=== PATIENT | male | born 1930 | race Caucasian/White ===

== ENCOUNTER 2019-09-17 02:12 | Emergency (ER) | payer MEDICARE, BC ==
[2019-09-17] MEDS ORDERED: Cocaine 4% TOPICAL* 4 ML/BOTTLE LEFT NARE ONE (02:30)
--- OUTSIDE RECORDS SUMMARY | 2019-09-17 03:02 | XMS REPORT | Summary of Care ---
:1930 Author Organization [facility] Address [address] [address] Care Team Providers Name Role Phone AveJamey Perri Primary Care Provider Joselin Elias RN Unavailable Reason for Visit Reason Comments Follow Up Pt. in for follow up on Diastolic Heart Failure, and Paroxysmal VT. Pt. reports SOB. Medication Management Pt. made a few adjustments throughout the past few months due to increased shortness of breath. Encounter Details Date Type Department Care Team Description 08/17/2019 Office Visit Maggie Sanchez, Chronic diastolic Cardiology MD Rigoberto heart failure (HCC) [address] (Primary Dx) [place] [address] [place] [address] [phone] Allergies Active Allergy Reactions Severity Noted Date Comments Amiodarone Hcl Unknown Reaction 12/13/2003 Amlodipine Besylate Other 08/14/2003 itching Diclofenac-Misoprostol GI Reaction 03/05/2010 Aspirin Buffered Nausea and Vomiting 08/14/2003 Oxycodone Hcl 12/13/2003 CONFUSED,TOO SEDATE Oxycodone-Acetaminophen Unknown Reaction 05/11/2011 documented as of this encounter (statuses as of 08/17/2019) Medications Medication Sig Dispensed Refills Start Date End Date Status Aspirin 81 MG Oral Tab Take 81 mg by 0 Active mouth DAILY. Lactobacillus Take 100 mg by 0 Active (ACIDOPHILUS) 100 MG mouth. Oral CapIndications: Frequent loose stools acetaminophen (TYLENOL) Take 500 mg by 0 Active 500 MG Oral Tab mouth EVERY SIX HOURS NEEDED for Pain. Rabeprazole EC 20 MG Take 20 mg by 90 Tab 3 10/08/2016 Active Oral Tab EC mouth DAILY. mupirocin (BACTROBAN) 2 To affected area 1 Tube 0 06/07/2017 Active % Apply externally twice daily for OintmentIndications: next 10 days Cellulitis, unspecified cellulitis site Tamsulosin HCl (FLOMAX) Take 2 Caps by 180 Cap 3 09/01/2018 Active 0.4 MG Oral Cap mouth DAILY. ipratropium-albuterol Take 1 Puff by 1 Inhaler 5 12/01/2018 Active (COMBIVENT RESPIMAT) inhalation EVERY 20-100 MCG/ACT FOUR HOURS Inhalation Aero Soln NEEDED (sob). allopurinol (ZYLOPRIM) TAKE ONE TABLET 90 Tab 3 12/13/2018 Active 300 MG Oral Tab BY MOUTH ONCE DAILY warfarin (COUMADIN) 5 Take 0.5-1 Tabs 90 Tab 3 03/17/2019 Active MG Oral TabIndications: by mouth DAILY. Atrial fibrillation, As directed which unspecified type (HCC) is 5mg Thur. 2.5mg rest of week tramadol (ULTRAM) 50 MG Take 0.5 Tabs by 15 Tab 0 04/04/2019 Active Oral Tab mouth EVERY SIX HOURS NEEDED (Pain). Max Daily Amount: 100 mg. cyclobenzaprine Take 10 mg by 0 Active (FLEXERIL) 5 MG Oral mouth THREE TIMES Tab DAILY NEEDED. Liniments (SALONPAS EX) by Apply 0 Active externally route. torsemide (DEMADEX) 20 Take 2 Tabs by 180 Tab 3 04/10/2019 Active MG Oral TabIndications: mouth TWICE Chronic diastolic heart DAILY. failure (HCC) Eplerenone 50 MG Oral Take 1 Tab by 180 Tab 3 04/10/2019 Active TabIndications: Chronic mouth TWICE diastolic heart failure DAILY. (HCC) umeclidinium-VILANTEROL Take 1 INHL by 1 Each 5 04/13/2019 Active (ANORO ELLIPTA) 62.5-25 inhalation DAILY. MCG/INH Inhalation AEROSOL POWDER, BREATH ACTIVATED zolpidem (AMBIEN) 5 MG TAKE ONE TABLET 30 Tab 3 07/10/2019 Active Oral TabIndications: BY MOUTH AT Insomnia, unspecified BEDTIME NEEDED type MAXIMUM DAILY DOSE = 1 documented as of this encounter (statuses as of 08/17/2019) Active Problems Problem Noted Date Permanent atrial fibrillation 12/05/2018 Primary osteoarthritis of right knee 05/05/2016 Streptococcal arthritis of right wrist 11/08/2015 Overview: [facility] admission infectious disease Dr Abner winter vancomycin Chronic obstructive pulmonary disease 01/25/2014 BMI 31.0-31.9,adult 06/21/2013 Poor sleep hygiene 02/09/2013 Colon polyps 05/04/2012 Overview: Colonoscopy 2008 Impotence of organic origin 01/19/2012 Primary hyperparathyroidism 12/04/2010 Overview: Bone density scan 2012 normal bone mineral density Dyslipidemia 11/11/2010 ASCVD (arteriosclerotic cardiovascular disease) 10/24/2009 Overview: 02/09/05: Right and Let Heart Catheterization SELECTIVE CORONARY ANGIOGRAPHY: LEFT MAIN: The left main is normal. LEFT ANTERIOR DESCENDING ARTERY: The left anterior descending artery is a large artery that reaches the apex. In its proximal/mid segment, it contains tandem lesions of about 30% severity. There is no critical stenosis. LEFT CIRCUMFLEX: The left circumflex is moderate-sized and nondominant without critcal stenosis. RIGHT CORONARY ARTERY: The right coronary artery is a large and very dominant artery. In its proximal segment, it contains a focal 50% stenosis which appears worse, from a heart catheterization in 1995. 02/08/09: Pharmacologic Nuclear Stress Test Impression: Normal study with the described artifacts. Ejection fraction 48%. BI-VENTRICULAR PACEMAKER/ICD IN SITU 12/04/2008 Overview: 06/07/08: Explanation of defibrillator generator, implantation of defibrillator generator, and electrophysiological evaluation of lead and generator. DEFIBRILLATOR GENERATOR EXPLANTED: [employer] model V337 serial number [id number]. DEFIBRILLATOR GENERATOR IMPLANTED: Model 3207 serial number [id number]. Right atrial lead model 4244 serial number [id number]. Right ventricle lead model 0154 serial number [id number]. Left ventricular lead model 1056T serial number [id number] 05/22/10: S/p NIPS / Dr. Reyes 04/27/12: Arrhythmia Center Report This visit was performed remotely. Ventricular pacing with capture is seen at the time of this transmission. On 03/15/12, there was one episode on nonsustained VT that subsided before any therapy was given. No other episodes were recorded. ICD function appears normal. This device should reach the SCARLET in 1.2 years. Atrial fibrillation 06/06/2008 Overview: 04/29/05: S/p AV octavio ablation / Dr. Reyes 07/08/05: S/p Electrical cardioversion CHADS score: 4 05/2014 stroke risk 2/100 treated and 6/100 untreated Current use of intermediate designer anticoagulation 10/31/2007 Overview: Managed by: [facility] Referring Provider: Joi Indication: afib Target Range: 2.0-3.0 Duration: Yarding Engineer Additional factors influencing anticoagulation: CHADS2 score of 3 for HTN, DM and AGE [id number] VASc score of 4 Concurrent use of medication affecting anticoagulation includes: Aspirin use doubles risk of hemorrhage (additive anticoagulant/antiplatelet effects) Updated Referral: 11/2018 Updated ACS Orders: 12/26/18 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 intolerant of CPAP 2006 Last sleep study 2006: IMPRESSION: Nocturnal Polysomnogram Shows: Respiratory: Gradual CPAP titration with good RDI reduction to 3.9/h at BIPAP 13 /8 cm of water pressure with BPM of 12. Patient tolerated the procedure well. Oximetry: Baseline was 93% and maximal desaturation was 75%. Leg movements: 44 episodes with the index of 7/h. EEG data: Low sleep efficiency with prominent stage 2 sleep. EKG data: SR CONCLUSION: Good response to BIPAP given the central component seen with CPAP. C onsider BIPAP at 13/8 cm of water pressure with heated humidifier, weight reduct ion program and good sleep hygiene. Diastolic heart failure 04/13/2005 Overview: 11/10/10: Echocardiogram FINAL IMPRESSION: Mildly calcific aortic valve, mild regurgitation, no stenosis Normal biventricular systolic function, LVEF 55-60% Normal atria No significant mitral or tricuspid valve disease No effusion No change from before Paroxysmal ventricular tachycardia 07/14/2004 BPH (benign prostatic hyperplasia) 12/13/2003 Overview: Dr Bustillos [facility] urology Essential hypertension, benign 03/12/2003 documented as of this encounter (statuses as of 08/17/2019) Resolved Problems Problem Noted Date Resolved Date Persistent atrial fibrillation 10/04/2017 11/16/2017 Elective replacement indicated for implantable 10/06/2016 11/16/2017 cardioverter-defibrillator (ICD) Chronic atrial fibrillation 07/13/2016 11/16/2017 Type II diabetes mellitus, well controlled 12/06/2015 04/28/2019 ACS (acute coronary syndrome) 11/23/2013 04/23/2014 Shortness of breath 08/17/2013 06/25/2014 Shoulder pain 03/08/2013 08/17/2013 Hyperparathyroidism 01/05/2013 11/16/2017 Overview: Mild calcium level 10.6 01/07 ICD (implantable cardiac defibrillator) malfunction 12/06/2012 11/16/2017 Right-sidedAbdominal pain 05/10/2012 05/10/2012 Overview: 11/11/11: Abdominal Ultrasound Impression: Heterogeneous liver without focal mass. No splenomegaly. Prominent common duct may just reflect prior cholecystectomy. Urgency: Routine. This is a routine medical imaging report. Recommendation: No specific imaging recommendation. Abdominal pain 05/10/2012 08/10/2012 Overview: 11/11/11: Abdominal Ultrasound Impression: Heterogeneous liver without focal mass. No splenomegaly. Prominent common duct may just reflect prior cholecystectomy. Urgency: Routine. This is a routine medical imaging report. Recommendation: No specific imaging recommendation. Epistaxis 11/18/2011 08/10/2012 Chronic systolic heart failure 05/12/2011 08/10/2012 Overview: 11/10/10: Echocardiogram Left Ventricle Left ventricular cavity size is normal. There is moderate to severe concentric left ventricular hypertrophy. No evidence of LVOT obstruction. Global systolic function is normal with an EF of 65 %. There is basal inferior wall hypokinesis. Systolic CHF, chronic 11/11/2010 12/04/2010 Cardiomyopathy 05/22/2010 09/16/2010 Encounter for therapeutic drug monitoring 05/20/2010 12/04/2010 Type II or unspecified type diabetes mellitus without mention 05/13/201004/2017 of complication, not stated as uncontrolled Overview: Hemoglobin A1C 6.1% 10/2010 Encounter for therapeutic drug monitoring 04/07/2010 05/13/2010 Asthma 11/12/2009 03/24/2010 Chronic systolic heart failure 04/23/2009 11/05/2010 Overview: 04/30/09: ECHOCARDIOGRAM FINAL IMPRESSION: The aortic valve is tricuspid , mildly calcified with normal mobility. There is mild aortic regurgitation. LVH,mild global hypokinesia, LVEF 45% Biatrial dilation Mildly dilated RV, mild global systolic dysfunction Mild MR,TR No significant effusion Other diseases of lung, not elsewhere classified 12/04/2008 02/27/2010 Mobitz (type) II atrioventricular block 07/20/2008 08/10/2012 COPD (chronic obstructive pulmonary disease) 06/08/2008 06/25/2014 BI-VENTRICULAR PACEMAKER/ICD IN SITU 05/17/2008 10/24/2009 Mechanical complication due to automatic implantable cardiac 05/10/200804/23 defibrillator Chronic systolic heart failure 04/25/2008 04/23/2009 Narcolepsy 03/19/2008 03/24/2010 Other dyspnea and respiratory abnormality 01/18/2008 04/23/2009 Vitreous degeneration 12/21/2007 06/25/2014 Pacemaker 06/29/2007 04/23/2009 CARDIOMEGALY 06/27/2007 04/23/2009 Unspecified disease of pericardium 04/12/2006 04/23/2009 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 Electrical cardioversion.2. Intracardiac mapping.3. Radiofrequency ablation of the flutter circuit. S/P AV-OCTAVIO ABLATION ON 04/29/05 PROCEDURE: The patient was prepped and draped in the usual style and manner. A 7-Kiswahili venous sheath was introduced and a quadripolar catheter was advanced into the region of the atrioventricular node and the atrioventricular node was ablated. Additionally, the patient was cardioverted back to a normal sinus rhythm. 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 03/19/2008 Overview: Replaced inactive diagnosis PROSTATIC DISORDER NOS(aka PROSTATE) 03/12/2003 04/08/2008 documented as of this encounter (statuses as of 08/17/2019) Immunizations Name Administration Dates Next Due Depo Medrol (40mg) 03/08/2013 Depo Medrol (80mg) 05/05/2016 Influenza (IM) Preservative Free 06/15/2013, 07/13/2012, 06/30/2011 Influenza Vaccine 65 Yrs + 07/04/2019 Influenza Vaccine High Dose 06/16/2018, 06/09/2017, 07/29/2016, 07/22/2015, 07/02/2014 Influenza Vaccine Whole 07/18/2009 Influenza Virus Vaccine - Whole 07/11/2008, 07/27/2002 Influenza Virus Vaccine Pres Free 07/01/2010 6-35 Months Pneumococcal Conjugate Vaccine 06/15/2009 Pneumococcal Conjugate(13 Valent) 11/07/2014 TDAP Vaccine 05/18/2017 ZOSTER (ZOSTAVAX) VACCINE 06/15/2013 documented as of this encounter Social History Tobacco Use Types Packs/Day Years Used Date Never Smoker Smokeless Tobacco: Never Used Alcohol Use Drinks/Week oz/Week Comments No 0 Standard drinks or equivalent 0.0 Sex Assigned at Date Recorded Not on file Job Start Date Occupation Industry Not on file Not on file Not on file Travel History Travel Start Travel End No recent travel history available. documented as of this encounter Last Filed Vital Signs Vital Sign Reading Time Taken Comments Blood Pressure 108/58 08/17/2019 9:22 AM EST Pulse 72 08/17/2019 9:22 AM EST regular Temperature - - Respiratory Rate - - Oxygen Saturation - - Inhaled Oxygen Concentration - - Weight 83.5 kg (184 lb) 08/17/2019 9:22 AM EST Height 162.6 cm (5' 4") 08/17/2019 9:22 AM EST Body Mass Index 31.58 08/17/2019 9:22 AM EST documented in this encounter Patient Instructions Patient InstructionsRigoberto Sanchez MD - 08/17/2019 9:20 AM EST No medication changes for now. Get your bloodwork checked today. Continue with a low sodium diet, regular exercise, and weighing yourself daily. Follow up with me in 3-4 months or sooner if needed. documented in this encounter Progress Notes Rigoberto Sanchez MD - 08/17/2019 9:20 AM EST [facility] Note Patient: Kory Meneses Date of : 1930 Date of Service: 08/17/2019 REFERRING PRACTITIONER: Jamey Dorado PRIMARY CARE PROVIDER: Jamey Dorado Chief Complaint: Chief Complaint Patient presents with Follow Up Pt. in for follow up on Diastolic Heart Failure, and Paroxysmal VT. Pt. reports SOB. Medication Management Pt. made a few adjustments throughout the past few months due to increased shortness of breath. History of Present Illness: [facility] He is a 89-y.o. male with HTN, paroxysmal VT s/p [employer] BiV ICD, ZAIN not on CPAP, severe diastolic CHF possibly secondary to infiltrative cardiomyopathy versus hypertensive heart disease, obesity, pericardial effusion, aflutter s/p flutter ablation 2003, and permanent Afib s/p AVN ablation on warfarin. Mr. Meneses returns to cardiology clinic today for routine f/u of his CHF. Since his last visit withme, he reports that he's been taking 40mg of torsemide and 50mg of eplerenone once daily. He has taken some extra doses of both diuretics as needed on occasion. From a symptom standpoint, he feels that his breathing is fairly stable at this point. No CP/pressure. Denies any palpitations, lightheadedness, or syncope. No orthopnea but does have some mild and stable lower extremity edema. Weight has been stable. Patient Active Problem List Diagnosis Essential hypertension, benign Paroxysmal ventricular tachycardia Diastolic heart failure (HCC) Obstructive sleep apnea Gout, unspecified Goldsmith's esophagus Current use of chcf anticoagulation BPH (benign prostatic hyperplasia) Atrial fibrillation (HCC) BI-VENTRICULAR PACEMAKER/ICD IN SITU ASCVD (arteriosclerotic cardiovascular disease) Dyslipidemia Primary hyperparathyroidism (HCC) Impotence of organic origin Colon polyps Poor sleep hygiene BMI 31.0-31.9,adult Chronic obstructive pulmonary disease (HCC) Streptococcal arthritis of right wrist (HCC) Primary osteoarthritis of right knee Permanent atrial fibrillation Past Surgical History: Procedure Laterality Date APPENDECTOMY CARDIAC CATH several CARPAL TUNNEL RELEASE mauricio CHOLECYSTECTOMY COLONOSCOPY 08/11/06 due 07/2009 CONSULT TO CARDIO/THORACIC SURGERY INCISIONAL HERNIA REPAIR INSERT PERMNT PACEMAKER,INITIAL/REPLACEMENT,TYPE DEV NS TOTAL HIP REPLACEMENT 2004 left TOTAL HIP REPLACEMENT 2002 right Allergies Allergen Reactions Amiodarone Hcl Unknown Reaction Amlodipine Besylate Other itching Arthrotec [Diclofenac-Misoprostol] GI Reaction Asa Buff, Mag [Aspirin Buffered] Nausea and Vomiting Oxycontin [Oxycodone Hcl] CONFUSED,TOO SEDATE Percocet [Oxycodone-Acetaminophen] Unknown Reaction Current Outpatient Medications Medication acetaminophen (TYLENOL) 500 MG Oral Tab allopurinol (ZYLOPRIM) 300 MG Oral Tab Aspirin 81 MG Oral Tab cyclobenzaprine (FLEXERIL) 5 MG Oral Tab Eplerenone 50 MG Oral Tab ipratropium-albuterol (COMBIVENT RESPIMAT) 20-100 MCG/ACT Inhalation Aero Soln Lactobacillus (ACIDOPHILUS) 100 MG Oral Cap Liniments (SALONPAS EX) mupirocin (BACTROBAN) 2 % Apply externally Ointment Rabeprazole EC 20 MG Oral Tab EC Tamsulosin HCl (FLOMAX) 0.4 MG Oral Cap torsemide (DEMADEX) 20 MG Oral Tab tramadol (ULTRAM) 50 MG Oral Tab umeclidinium-VILANTEROL (ANORO ELLIPTA) 62.5-25 MCG/INH Inhalation AEROSOL POWDER, BREATH ACTIVATED warfarin (COUMADIN) 5 MG Oral Tab zolpidem (AMBIEN) 5 MG Oral Tab Family History Problem Relation Age of Onset Cancer Mother kidney or bladder Heart Father heart failure Cancer Father colon Stroke Sister Social History Socioeconomic History Marital status: Spouse name: Not on file Number of children: Not on file Years of education: Not on file Highest education level: Not on file Occupational History Not on file Social Needs Financial resource strain: Not on file Food insecurity: Worry: Not on file Inability: Not on file Transportation needs: Medical: Not on file Non-medical: Not on file Tobacco Use Smoking status: Never Smoker Smokeless tobacco: Never Used Substance and Sexual Activity Alcohol use: No Alcohol/week: 0.0 standard drinks Drug use: No Sexual activity: Not Currently Lifestyle Physical activity: Days per week: Not on file Minutes per session: Not on file Stress: Not on file Relationships Social connections: Talks on phone: Not on file Gets together: Not on file Attends gnosticist service: Not on file Active member of club or organization: Not on file Attends meetings of clubs or organizations: Not on file Relationship status: Not on file Intimate partner violence: Fear of current or ex partner: Not on file Emotionally abused: Not on file Physically abused: Not on file Forced sexual activity: Not on file Other Topics Concern Back Care Not Asked Bike Helmet Not Asked Blood Transfusions Not Asked Caffeine Concern No Exercise No Hobby Hazards Not Asked International Travel Not Asked Service Not Asked Occupational Exposure Not Asked Seat Belt Not Asked Self-Exams Not Asked Sleep Concern Not Asked Special Diet Not Asked Stress Concern Not Asked Weight Concern No Social History Narrative 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 Review of Systems - Negative except as noted in HPI. Physical Exam: Vitals: 08/17/19 0922 BP: 108/58 BP Location: Right arm Patient Position: Sitting Pulse: 72 Weight: 184 lb (83.5 kg) Height: 5' 4" (1.626 m) Body mass index is 31.58 kg/m. General: Overweight, alert 89-y.o. male in NAD HEENT: anicteric, MMM, no E/E OP, conj pink Neck: JVP approx 7-8 cm above RA, no carotid bruits or LAD CV: RR, normal s1/s2, 2/6 FARHAT at USB unchanged from before. Pulm: CTA bilaterally without wheezes, rhonchi, or rales. No increased work of breathing at rest. Abd: soft, obese, NT, slightly distended, +BS. No appreciable pulsatile masses or bruits. Ext: Trace bilateral lower extremity edema similar to prior visit; no cyanosis, no cords, redness, or warmth, 2+ distal pulses Neuro: no gross focal deficits Skin: no visible lesions Labs: Lab Results Component Value Date NA 139 05/04/2019 K 3.9 05/04/2019 CL 101 05/04/2019 CO2 29 05/04/2019 GLUCOSE 97 05/04/2019 BUN 23 (H) 05/04/2019 CREATININE 1.0 05/04/2019 CALCIUM 10.0 05/04/2019 TP 7.0 04/10/2019 ALBUMIN 3.8 04/10/2019 AST 47 04/10/2019 ALT 38 04/10/2019 ALK 82 04/10/2019 TBILI 0.5 04/10/2019 Lab Results Component Value Date NT PRO BNP 555 (H) 05/04/2019 Lab Results Component Value Date CHOL 154 01/03/2018 TRIG 146 01/03/2018 HDL 39 (L) 01/03/2018 LDL 86 01/03/2018 LDLHDLRATIO 2.2 01/03/2018 CHOLHDLRATIO 3.9 01/03/2018 SPEP 03/20/15: Normal pattern UPEP 03/25/15: No monoclonal pattern detected. Abdominal Fat Pad Biopsy 10/04/2015: Soft tissue, anterior abdominal wall fat pad, biopsy: -Benign adipose tissue; no amyloid deposits are identified on routine or Congo red staining Cardiac Studies: ICD Interrogation 06/19/19: This visit was performed remotely. Ventricular pacing with capture was seen at the time of this transmission. There was one non-sustained episode recorded at a rate of 174 bpm that lasted for 3 seconds, it appears to be rapid ventricular response to the atrial fibrillation. Heart rates range between 70-80 bpm the majority of the time. [employer] Impedance monitoring shows a decrease in thoracic impedancemeasurements for 8 days in February, 15 days in March, 7 days in April and 7 days in May. This would indicate that possible fluid accumulationwas occurring at that time. Implantable Cardioverter Defibrillator function appears normal. TTE 03/27/19: FINAL IMPRESSION: Normal LV cavity size with moderately increased LV wall thickness. Normal LV systolic function with no regional wall motion abnormalities and estimated LVEF 55-60%. Left atrium is severely dilated. Aortic stenosis is in mild range by continuity equation, however 2D appearance may suggest a worse degree of stenosis. If there is a suspicion of worse degree of aortic stenosis based on clinical assessment, further testing with TONEY may be considered. Mild to moderate aortic regurgitation. Estimated pulmonary artery systolic pressure is 37mmHg (mildly elevated). Small pericardial effusion. In comparison with report of TTE dated 04/21/2018, aortic stenosis is now present. Aortic regurgitation appears slightly worse. TTE at [employer] 02/07/16: Concentric LVH with abnormal diastolic function and left atrial enlargement. Normal LVEF without significant wall motion abnormalities, but abnormal LV systolic strain (see text). Heavy aortic valve sclerosis with reduced valve area, but no quite significant stenosis. Mitral valve sclerosis without signigicant stenosis. Estimated mildly elevated pulmonary artery pressure. TTE 12/05/14: FINAL IMPRESSION: Moderate concentric LVH with severe left atrial enlargement and evidence for severely impaired diastolic filling and elevated LA pressures (see text). Normal LV systolic function with no regional wall motion abnormalities; estimated LVEF 55%. Moderate RA enlargement with upper normal RV size and normal RV systolic function. Probably mild aortic stenosis with mild to moderate regurgitation, as described. Estimated moderately elevated pulmonary arterial pressure. Small circumferential pericardial effusion without evidence of tamponade. Compared to prior study 11/24/13, pericardial effusion is slightly smaller and estimated pulmonary pressures are slightly higher. Other findings appear Similar. Recommendation Given constellation of LVH, normal LV function, pericardial effusion, and severe LA enlargement, a restrictive cardiomyopathy such as amyloidosis should be considered. If clinically indicated, could further evaluate with cardiac MRI. Regadenoson SPECT 11/24/13: Impression: No evidence for reversible ischemia with this normal size left ventricle. Assessment & Plan: Kory Meneses is a 89-y.o. male with HTN, paroxysmal VT s/p [employer] BiV ICD, ZAIN not on CPAP, severe diastolic CHF possibly secondary to infiltrative cardiomyopathy versus hypertensive heart disease,obesity, pericardial effusion, aflutter s/p flutter ablation 2003, and permanent Afib s/p AVN ablation on warfarin. 1. 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 He was seen by the advanced HF clinic at [facility] twice in the past, and they agree that conservative medical management of his diastolic CHF makes the most sense. Symptoms are fairly stable right now on half his prior diuretic doses. Prior stable diuretic doses were eplerenone 50mg BID and torsemide 40mg BID. I am continuing those at half his prior dose (once daily) at this point since he's doing well. I'm checking labs again today, and I may increase his eplerenone to 100mg daily but keep him on the 40mg of torsemide daily. I again instructed him to take a "double" dose of both diuretics if his weight increases by 2-3 pounds over 2 or more days. I again counseled patient on the importance of a low sodium diet and monitoring his weights daily. 2. Permanent Atrial Fibrillation: The heart-rate is currently well controlled on the current medicalregimen. This patient's [id number] score is 4. I recommend the following treatment strategy and medical regimen for this patient: Stroke prevention: Based on the patient's [id number]-Idip risk profile, I recommend continuing oral anticoagulation with warfarin. 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 Rhythm control: N/A. Chronic AF. 3. VT/ICD: No recent episodes of VT seen on ICD interrogation. Thank you for allowing me to participate in the care of Kory Meneses. We will have him f/u in our office in ~3-4 months or sooner if needed. If you have any questions or concerns please feel free to call our office at . Rigoberto Sanchez MD, 08/17/2019, 09:30 This note was created using my previous note as a template; changes were made where appropriate, andall information in the current note is up to date to the best of my knowledge. documented in this encounter Plan of Treatment Date Type Specialty Care Team Description 08/31/2019 [facility] Anticoagulation 10/19/2019 [facility] Ar[facility] 11/30/2019 Office Visit Cardiology Rigoberto Sanchez MD [address] [place] [address] 02/01/2020 Office Visit Pulmonary Phillip Berg MD [address] [place] [address] [phone] 02/08/2020 Office Visit Arrhythmia Center 03/21/2020 Office Visit Urology Gómez Padilla MD [address] [place] [address] Name Type Priority Associated Diagnoses Order Schedule BASIC METABOLIC PANEL Lab Routine Chronic diastolic heart Expected: 2018 failure (HCC) (Approximate), Expires: 02/13/2020 NT PROBNP Lab Routine Chronic diastolic heart Expected: 08/17/2019 failure (HCC) (Approximate), Expires: 08/17/2020 Health Maintenance Due Date Last Done Comments HIV SCREENING 1945 FALL RISK ASSESSMENT 1997 ZOSTER IMMUNIZATION SERIES 08/10/2013 06/15/2013 (2 of 3) PNEUMOCOCCAL 65+YRS (2 of 2 11/07/2015 11/07/2014, 06/15/2009 - PPSV23) MEDICARE ANNUAL WELLNESS 08/04/2018 08/04/2017, 05/04/2012 VISIT DEPRESSION SCREENING 04/10/2020 04/10/2019 INFLUENZA VACCINE Completed 07/04/2019, 06/16/2018, 06/09/2017, Additional history exists HPV IMMUNIZATION SERIES Aged Out No longer eligible based on patient's age to complete this topic MENINGOCOCCAL VACCINE IMM Aged Out No longer eligible based on patient's age to complete this topic documented as of this encounter Goals Goal Patient Goal Associated Recent Patient-Stated? Author Type Problems Progress Blood Pressure Blood Pressure 108/58 No [place], < 140/90 (08/17/2019 Jamey Rayo, 10:28 AM EST) Note: Hypertension Care Plan Based on the patient's clinical history and according to JNC 8 guidelines target blood pressure goal is less than 140/90. Based on the patient's last blood pressure of BP: 110/60 mmHg the patient is at at goal. As your provider, it is important that I advise you regarding: your current medications and help you with any challenges you may face taking your medications as directed (ex. instructions, cost, side effects, and interactions). lifestyle changes: exercise, weight reduction, diet, dietary sodium reduction and medication compliance your clinical goals and how you can achieve success: weight reduction, exercise plan and diet improvements medication management: N/A diet only patient education/self-management tools provided: Current self-management tools adequate To successfully manage my Hypertension I will: monitor my blood pressure daily, understanding that my goal is less than 140/ 90 per my healthcare provider's recommendation. I will schedule an appointment with my provider if consistent abnormal readings greater than 160/100. take medications every day as prescribed by my healthcare provider and if unable to take them I will discuss with my provider. monitor for symptoms of chest pain, chest tightness/pressure, irregular heartbeat, persistent dizziness, radiating arm pain, and neck or jaw pain. If any of these symptoms are noticed I will seek medical attention immediately by calling 911 exercise/walk 30 minutes 7 day(s) per week. If I experience chest pain, chest tightness, or shortness of breath, I will seek medical attention immediately. follow a diet rich in fruits, vegetables, and low-fat dairy products with reduced content of saturated & total fat. I will reduce my sodium intake daily. An example is the DASH diet. To obtain more information please refer to the DASH Eating Plan listed in Educational Resources. record my blood pressure results. Javier is safe and secure way for you to do this in your medical record online. try to obtain an ideal body weight. My recent weight was Weight: 200 lb ( 90.719 kg). My weight loss goal for my next office visit is 190 lb . limit alcohol consumption. For men two drinks per day and women one drink per day. if currently smoking, will discuss how to quit smoking with my healthcare provider and work towards quitting. Educational Resources: National Heart, Lung, & Blood [place] http://nhlbi.nih.gov/hbp/index.html The DASH Diet Eating Plan http://www.nhlbi.nih.gov/health/health-topics/ topics/dash/ Academy of Nutrition & DIetetics http://eatright.org National Smoking Cessation Site http://smokefree.gov Blood Pressure < Blood Pressure 108/58 (08/17/2019 10:28 Jamey Connors, 140/90 AM EST) Note: This is an individualized treatment (blood pressure) goal for Kory Meneses: Displayed above (on the left) is your goal for blood pressure control. Your most recent blood pressure is also shown above, on the right. You should try to achieve blood pressures that are lower than your goal listed above (on the left). Weight increase vs. 18 mo CHF 0 (08/17/2019 10:28 AM EST) Jamey Connors MD min (lbs) < 5 Note: This is an individualized treatment (congestive heart failure, CHF) goal for Kory Meneses: Displayed above (on the right) is how many pounds you are in excess of your lowest weight over the past 18 months. Note that lower numbers are better. Excessive weight gain often indicates fluid reten tion and worsening heart failure. You should contact your doctor immediately if the above number is too high (above your goal, the number on the left). Diabetes < 7.0 Diabetes 5.8 (01/03/2018 10:00 AM EDT) Jamey Connors MD Note: Diabetes Care Plan According to current 2014 ADA guidelines the patient A1C goal is less than 7. The patient's last A1C was Lab Results Lab Results Value Date/Time GLYCO 6.6 04/30/2014 0856 GLYCO 6.8 11/28/2013 1545 The patient is:at goal . As your provider, it is important that I advise you regarding: your current medications and help you with any challenges you may face taking your medications as directed (ex. instructions, cost, side effects, and interactions). lifestyle changes:no change your clinical goals and how you can achieve success:maintain current diet medication management: N/A diet only patient education/self-management tools provided: Current self-management tools adequate To successfully manage my Diabetes I will: have lab work every six months if my previous A1c was 7 or less. If my results were greater than 7, I will have lab work every three months. My goal is to control my diabetes by keeping A1c below 7.0 take medications every day as prescribed by my healthcare provider and if unable to take them I will discuss with my provider. exercise/walk 15 minutes 6 day(s) per week. If I experience chest pain, chest tightness, or shortness of breath, I will seek medical attention immediately. check feet daily. If sores or irritation are noticed, will seek medical attention. follow a low carbohydrate and low fat diet. My goal is an LDL (bad cholesterol) number less than 100 when I have my routine lab work. check blood sugar as instructed and will call my healthcare provider if the results are consistently below 70 or above 300. I will monitor for symptoms of low blood sugar (feeling faint, dizzy, lig htheaded, jittery, sweaty, or hungry), if symptoms are noticed, I will eat or drink something (glucose tabs, orange juice, candy) to help raise sugar. record my blood sugar results. Javier is safe and secure way for you to do this in your medical record online. try to obtain an ideal body weight. My recent weight was Weight: 199 lb ( 90.266 kg). My weight loss goal for my next office visit is 190 pounds . to prevent kidney problems common to people with diabetes I will complete a yearly Microalbumin to check for protein in urine. I will talk with my healthcare provider about medications to prevent diabetic renal disease. to prevent diabetic retinopathy I will see an eye doctor yearly. A yearly dilated eye exam helps prevent blindness. if currently smoking, will discuss how to quit smoking with my healthcare provider and work towards quitting. Education Resources: [place] Diabetic Association Site http://diabetes.org Academy of Nutrition & Dietetics Site http://eatright.org National Smoking Cessation Site http://smokefree.gov Glycohemoglobin A1c < 7.0 Diabetes 5.8 (01/03/2018 10:00 AM Jamey Connors EDT) MD Note: This is an individualized treatment (diabetes control, HgbA1C) goal for Kory Meneses: Displayed above is your progress towards your HgbA1C goal. Your goal is shown above (on the left); your most recent HgbA1C is shown on the right. Note that lower numbers are better. Keep immunizations current Lifestyle Jamey Connors MD Note: This is an individualized lifestyle goal for Kory Meneses: Please be sure to keep up-to-date on recommended immunizations. For example, this would include a yearly influenza vaccine. Immunization status can be seen by looking at the Health Maintenance sections of your e[facility], Plan of Care, and any After Visit Summaries. Consume a ai-gossw-toim diet Lifestyle Jamey Connors MD Note: This is an individualized lifestyle goal for Kory Meneses: Please do not add additional salt to your food. Additional salt may lead to fluid retention and worsen your congestive heart failure. Take all prescribed medications as Self-management Jamey Connors MD directed Note: This is an individualized self-management goal for Kory Meneses: Please take all prescribed medications as directed. 1. Do not skip doses. If you cannot afford your medications, talk with your doctor. 2. Use a pill reminder system such as a pill box if needed. Your pharmacist can help you with this. 3. Contact your Pharmacy 5 days before your medication runs out. If you cannot take your medications for any reasons, talk with your doctor. 4. Please bring all of your medication bottles and inhalers (or a list of all your medications/inhalers) with you to every visit. Potential barriers to meeting all of your care plan goals will continue to be addressed on an ongoing basis. Check your weight daily Self-management Jamey Connors MD Note: This is an individualized self-management goal for Kory Meneses: Please check your weight daily. Refer to the accompanying CHF treatment goal and call your doctor immediately for further instructions on how to respond to unexpected weight gain. 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 [employer], 12/25/2013 [id number] / Implanted: Qty: 1 on 12/06/2012 at [facility] [employer] [id number] / Unify Assura [id number] - [id number] Left: [facility], 09/26/2018 [id number] / Implanted: Qty: 1 on 10/06/2016 by Garret Reyes MD at [facility] [id number] / documented as of this encounter Results Not on filedocumented in this encounter Visit Diagnoses Diagnosis Chronic diastolic heart failure (HCC) - Primary Chronic diastolic heart failure documented in this encounter (Home) [facility] [phone] [place], [place] (Work) [address] documented as of this encounter Advance Directives Code Status Date Activated Date Inactivated Comments Full Code 03/27/2019 7:30 PM Does the patient have decision making capacity? Yes Order was discussed with: Patient I discussed all options and patient/surrogate requested and agreed to: Full Code Full Code 11/23/2013 6:58 PM 11/24/2013 9:12 PM Full Code 08/10/2012 10:41 PM 08/12/2012 3:05 PM
--- OUTSIDE RECORDS SUMMARY | 2019-09-17 03:02 | XMS REPORT | Continuity of Care Document ---
:1930 External Reference #:[id number] Author Name Maddie Pike PA-C Address [address] [place] [address] Care Team Providers Name Role Phone Jamey Dorado MD - Internal Care Team Information Commercial Pilot [phone] Medicine Problems Description No Information Available Social History Type Date Description Comments Sex Unknown Tobacco Use Start: Unknown Never Smoked Cigarettes Tobacco Use Start: Unknown Never Smoked Cigars Tobacco Use Start: Unknown Never Smoked A Pipe Smokeless Tobacco Never Used Smokeless Tobacco ETOH Use Denies alcohol use Tobacco Use Start: Unknown Patient has never smoked Smoking Status Reviewed: 09/12/19 Patient has never smoked Allergies, Adverse Reactions, Alerts Active Allergies Reaction Severity Comments Date Hydrocortisone 05/25/2014 Percocet 09/12/2019 Oxycodone 09/12/2019 Medications Active Medications SIG Qnty Indications Ordering Date Provider Allopurinol 2 tab po daily [place] MD, 300mg Tablets Jamey Aspirin Low Dose 1 by mouth every [place] , 81mg Tablets day Jamey Tamsulosin HCL [address] [facility], 0.4mg Capsules day Jamey Coumadin as directed [address] [facility], Tablets Jamey Anoro Ellipta [address] [place], 62.5-25mcg/Inh Jamey Aerosol Combiventinhaler [address] [place], every 6 hours as Jamey needed Ambien 1 by mouth [address] [place], 5mg Tablets min prior to Jamey sleep Tylenol as needed for [address] [facility], 325mg Tablets pain Jamey Torsemide Take Two Tablets Unknown 20mg Tablets By Mouth Twice A Day Eplerenone Take One Tablet Unknown 50mg Tablets By Mouth Two Times A Day Vitamin B6 as directed Unknown 250mg Tablets Aspirin 1 by mouth every Unknown 81mg Chewtabs day Fiber Diet as directed Unknown Tablets Immunizations Description No Information Available Vital Signs Date Vital Result Comment 09/12/2019 3:17pm BP Systolic 131 mmHg BP Diastolic 82 mmHg Heart Rate 91 /min Respiratory Rate 18 /min Weight 190.00 lb Weight 86.184 kg Height 66 inches 5'6" Height in cm's 167.6 cm BMI (Body Mass Index) 30.7 kg/m2 06/08/2014 10:48am BP Systolic 113 mmHg BP Diastolic 56 mmHg Heart Rate 74 /min Respiratory Rate 16 /min Weight 185.00 lb Weight 83.916 kg Height 70 inches 5'10" Height in cm's 177.8 cm BMI (Body Mass Index) 26.5 kg/m2 Results Description No Information Available Procedures Date Code Description Status 09/12/2019 96905 Contol Nasal Hemorrhage, Anterior, Simple Completed Medical Devices Description No Information Available Encounters Type Date Location Provider Dx Diagnosis Office Visit 09/12/2019 3:15p [place] 09/27/07 Maddie Pike PA-C R04.0 Epistaxis Assessments Date Code Description Provider 09/12/2019 R04.0 Epistaxis Maddie Pike PA-C Plan of Treatment 09/12/2019 - MARISELA SchumacherCR04.0 EpistaxisComments:09/12/2019 - EPISTAXIS INSTRUCTIONS2 Functional Status Description No Information Available Mental Status Description No Information Available Referrals Description No Information Available
--- OUTSIDE RECORDS SUMMARY | 2019-09-17 03:02 | XMS REPORT | Continuity of Care Document ---
:1930 Author Organization [facility] Care Team Providers Name Role Phone MARY KAY ANNA Admitting Physician MARY KAY ANNA Attending Physician BLADIMIR PERES Primary Care Physician Allergies and Intolerances Code Code Allergy Type Reaction Severity Start End Date Status System Substance Date 21410429 RXNorm Percocet Drug Unknown Active allergy (disorder) 7804 RXNorm Oxycodone Drug Unknown Active allergy (disorder) 5489 RXNorm Hydrocodone Drug Unknown Active allergy (disorder) Medications RxNorm Medication Dose Route Instructions Start Date End Date Status 4590026 Lidocaine 0.05 1 patch topical topically daily Active MG/MG Medicated (leave on most Patch painful area for 12 hrs) Medications At Time Of Discharge RxNorm Medication Dose Route Instructions Start Date End Date Status 1210991 Lidocaine 0.05 1 patch topical topically daily Active MG/MG Medicated (leave on most Patch painful area for 12 hrs) Problems No Data in the system Procedures No data in the system Results Laboratory Results Order: PT/INR Specimen Source: Body Site: Legend: (G,H) = High, (GG,HH,CH,#H) = Above High Threshold, (#,L) = Low, (##,CL, #L,LL) = Below Low Threshold, (C,CC,CA,#A,A) = Abnormal LOINC Test Result Flag Range Units Date 59010-29 1PT Time PPP 23.9 H 9.4-12.4 sec 08/31/2019 10:54 6301-6 1INR PPP 2.1 08/31/2019 10:54 Interpretive [place]: 1 INR INTERPERTATION 2.0-3.0 THERAPEUTIC MONITORING 2.5-3.5 HEART VALVE REPLACEMENT Performing Lab Footnotes:[facility] - [id number] - [address] [place] [address] TRACE MCGHEE Social History Code Code System Social History Observation Description Dates Observed 350454527 SNOMED CT Current Smoking Status Never smoker UNK AdministrativeGender Sex Assigned At Unknown Vital Signs No data in the system Goals Section No data in the system Health Concerns No data in the systemEncounter Diagnosis Date Code Code System Diagnosis Status I48.21 ICD10 PERMANENT ATRIAL FIBRILLATION Active Advance Directives *RHIO - CONSENT IS YES Directive Type Effective Date Dance Critic Notes Supporting Document Name Address Phone No Directive Type 02/25/2016 Not Specified Not Specified Not Specified None No specified 10:36:58 AM Encounters Encounter Diagnosis Location Date PERMANENT ATRIAL FIBRILLATION [facility] 08/31/2019 Family History Family history not obtained Functional Status No data in the system Immunizations No data in the system Medical Equipment No data in the system Mental Status No data in the system Assessment and Plan Assessments No data in the systemPlan Of Treatment No data in the systemPending Tests No data in the system Hospital Discharge Instructions No data in the system Reason for Visit No data in the system
--- OUTSIDE RECORDS SUMMARY | 2019-09-17 03:02 | XMS REPORT | Summary of Care ---
:1930 Author Organization [facility] Address [address] [place] [address] Care Team Providers Name Role Phone Jamey Dorado Perri Primary Care Provider Joselin Elias RN Unavailable Reason for Visit Reason Comments Shortness of Breath COPD Encounter Details Date Type Department Care Team Description 08/17/2019 Office Visit [facility] Phillip Berg, Chronic obstructive pulmonary disease, unspecified COPD type (HCC) (Primary Dx); [address] [facility] SOB (shortness of breath); [place] [address] [address] Chronic atrial fibrillation [phone] [place] [address] Allergies Active Allergy Reactions Severity Noted Date [...] Streptococcal arthritis of right wrist 11/08/2015 Overview: [facility] admission infectious disease Dr Abner winter vancomycin Chronic obstructive pulmonary disease 01/25/2014 BMI 31.0-31.9,adult 06/21/2013 Poor sleep hygiene 02/09/2013 Colon polyps 05/04/2012 Overview: Colonoscopy 2009 Impotence of organic origin 01/19/2012 Primary hyperparathyroidism [...] EXPLANTED: [employer] model V337 serial number [id number]. DEFIBRILLATOR GENERATOR IMPLANTED: Model 3207 serial number [id number]. Right atrial lead model 4244 serial number [id number]. Right ventricle lead model 0154 serial number [id number]. Left ventricular lead model 1056T serial number [id number] 05/22/10: S/p NIPS / Dr. 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 Overview: Esophago-gastroduodenoscopy 03/06 with biopsy Esophago-gastroduodenoscopy with biopsy Dr Brody 06/06: barrettt's with dysplasia-recommend repeat biopsy [address] Vik Dinero [place], [place] Gout, unspecified 07/26/2007 Obstructive sleep apnea 12/07/2005 Overview: Dental appliance Dr Conteh dental dept [facility] intolerant of CPAP 2006 Last sleep study [...] (benign prostatic hyperplasia) 12/13/2003 Overview: Dr Bustillos [facility] urology Essential hypertension, benign 03/12/2003 documented as [...] in the usual style and manner. A 7-Urdu venous sheath was introduced and a quadripolar [...] Time Taken Comments Blood Pressure 108/58 08/17/2019 10:28 AM Per cardiology visit EST Pulse 104 08/17/2019 10:28 AM EST Temperature - - Respiratory Rate 17 08/17/2019 10:28 AM EST Oxygen Saturation 98% 08/17/2019 10:29 AM on r/a with rest EST Inhaled Oxygen Concentration - - Weight 83.5 kg (184 lb) 08/17/2019 10:28 AM EST Height 162.6 cm (5' 4") 08/17/2019 10:28 AM EST Body Mass Index 31.58 08/17/2019 10:28 AM EST documented in this encounter Progress Notes Phillip Berg MD - 08/17/2019 10:30 AM EST Name: Kory Meneses : 1930 Date of Service: 08/17/2019 Referring Practioner: Phillip Berg Primary Care Provider: Jamey Dorado History of Present Illness Kory Meneses is a 89-y.o. male who presents for a reevaluation of his shortness of breath.Overall, compared to 6 months ago, the patient does appear to be less short of breath at rest. He definitely has a significant amount of heart failure. He was hospitalized for heart failure since last visit tot office. He feels that his breathing has improved after increasing the dose of torsemide. He isalso walking the treadmill at 1 mph. Now, he is able to do it for 10 minutes without stopping whichis a significant improvement. The patient denies any chest pain, abdominal pain, melena, hematuria,rash or swelling of any joints. 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 Current Outpatient Medications Medication Sig acetaminophen (TYLENOL) 500 MG Oral Tab Take 500 mg by mouth EVERY SIX HOURS NEEDED for Pain. allopurinol (ZYLOPRIM) 300 MG Oral Tab TAKE ONE TABLET BY MOUTH ONCE DAILY Aspirin 81 MG Oral Tab Take 81 mg by mouth DAILY. cyclobenzaprine (FLEXERIL) 5 MG Oral Tab Take 10 mg by mouth THREE TIMES DAILY NEEDED. Eplerenone 50 MG Oral Tab Take 1 Tab by mouth TWICE DAILY. ipratropium-albuterol (COMBIVENT RESPIMAT) 20-100 MCG/ACT Inhalation Aero Soln Take 1 Puff byinhalation EVERY FOUR HOURS NEEDED (sob). Lactobacillus (ACIDOPHILUS) 100 MG Oral Cap Take 100 mg by mouth. Liniments (SALONPAS EX) by Apply externally route. mupirocin (BACTROBAN) 2 % Apply externally Ointment To affected area twice daily for next 10 days Rabeprazole EC 20 MG Oral Tab EC Take 20 mg by mouth DAILY. Tamsulosin HCl (FLOMAX) 0.4 MG Oral Cap Take 2 Caps by mouth DAILY. torsemide (DEMADEX) 20 MG Oral Tab Take 2 Tabs by mouth TWICE DAILY. tramadol (ULTRAM) 50 MG Oral Tab Take 0.5 Tabs by mouth EVERY SIX HOURS NEEDED (Pain). MaxDaily Amount: 100 mg. umeclidinium-VILANTEROL (ANORO ELLIPTA) 62.5-25 MCG/INH Inhalation AEROSOL POWDER, BREATH ACTIVATED Take 1 INHL by inhalation DAILY. warfarin (COUMADIN) 5 MG Oral Tab Take 0.5-1 Tabs by mouth DAILY. As directed which is 5mg Thur. 2.5mg rest of week zolpidem (AMBIEN) 5 MG Oral Tab TAKE ONE TABLET BY MOUTH AT BEDTIME NEEDED MAXIMUM DAILY DOSE = 1 No current facility-administered medications for this visit. 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 BENIGN HYPERTENSION 03/12/2003 Cardiomyopathy (HCC) 05/22/2010 CHRON OBST ASTHMA WO STATUS ASTHM(aka COPD) 03/12/2003 Diabetes mellitus Dyslipidemia Frequency of urination and polyuria GERD (gastroesophageal reflux disease) Gout, unspecified 07/26/2007 Hypertrophy of prostate without urinary obstruction and other lower urinary tract symptoms (LUTS) 12/13/2003 Left heart failure (HCC) Mobitz (type) II atrioventricular block 07/20/2008 OSTEOARTHROSIS HIP 10/19/2003 Pacemaker 06/29/2007 PAROX VENTRIC TACHYCARD 07/14/2004 POSTINFLAM PULM FIBROSIS 04/12/2006 SLEEP APNEA NOS 12/07/2005 wears mouth gaurd Type II or unspecified type diabetes mellitus without mention of complication, uncontrolled 05/13/2010 Unspecified essential hypertension VHF (viral hemorrhagic fever) Past Surgical History: Procedure Laterality Date APPENDECTOMY CARDIAC CATH several CARPAL TUNNEL RELEASE mauricio CHOLECYSTECTOMY COLONOSCOPY 08/11/06 due 07/2009 CONSULT TO CARDIO/THORACIC SURGERY INCISIONAL HERNIA REPAIR INSERT PERMNT PACEMAKER,INITIAL/REPLACEMENT,TYPE DEV NS TOTAL HIP REPLACEMENT 2004 left TOTAL HIP REPLACEMENT 2003 right Family History Problem Relation Age of Onset Cancer Mother kidney or bladder Heart Father heart failure Cancer Father colon Stroke Sister REVIEW OF SYSTEMS: A comprehensive review of systems was negative except for as noted in the history of present illness/subjective. PHYSICAL EXAMINATION: VITALS: Vitals: 08/17/19 1028 08/17/19 1029 BP: 108/58 BP Location: Right arm Patient Position: Sitting Pulse: 104 Resp: 17 SpO2: 93% 98% Weight: 184 lb (83.5 kg) Height: 5' 4" (1.626 m) GENERAL: alert, oriented, no acute distress HEENT: sclera normal, anicteric, mucous membrane moist, conjunctivitis pink and pale, pupils equal,round, reactive to light, extraocular movement intact, posterior pharynx: crowded, tongue midline ,dry mucous membranes, Mallampati Score: Class IV: hard palate only. NECK: no mass, no adenopathy, no thyromegaly, supple, thyroid: not enlarged, symmetric, no tenderness/mass/nodules, no jugular venous distention. LUNGS: diminished breath sounds bilateral. HEART: regular rhythm, no murmurs, no gallops, no rubs S1: normal S2: normal. ABDOMEN: Soft,distended, non tender, without masses or organomegaly, nondistended, normal bowel sounds, without guarding, without rebound. EXTREMITIES: no clubbing, cyanosis. 2+ edema of the lower extremities, left more than right NEUROLOGICAL: alert and oriented x3 gait: normal. Impression/Plan: 1. Shortness of breath secondary to COPD, chronic atrial fibrillation, deconditioning and congestive heart failure. Given the severity of his problem , overall, I do feel the patient is at least stable and perhaps is improved slightly. At this point, would recommend to continue with the present therapy. The patient already has received an influenza vaccination. He will come back for follow-up in about 6 months Author: Phillip Berg MD 10:43 08/17/2019 documented in this encounter Plan of Treatment Date Type Specialty Care Team Description 08/31/2019 [facility] Anticoagulation 10/19/2019 [facility] Arrhythmia Center 11/30/2019 Office Visit Cardiology Rigoberto Sanchez MD [address] [place] [address] 02/01/2020 Office Visit Pulmonary Phillip Berg MD [address] [place] [address] [phone] 02/08/2020 Office Visit Arrhythmia Center 03/21/2020 Office Visit Urology Gómez Padilla MD [address] [place] [address] [phone] Health Maintenance Due Date Last Done Comments [...] Progress Blood Pressure Blood Pressure 108/58 No Catron, < 140/90 (08/17/2019 Jamey Rayo, 10:28 AM [...] Educational Resources. record my blood pressure results. Covocativee is safe and secure way for you [...] Educational Resources: National Heart, Lung, & Blood [place] http://nhlbi.nih.gov/hbp/index.html The DASH Diet Eating Plan http://www.nhlbi.nih.gov/health/health-topics/ [...] raise sugar. record my blood sugar results. DentLight is safe and secure way for you [...] provider and work towards quitting. Education Resources: [place] Diabetic Association Site http://diabetes.org Academy of Nutrition [...] and any After Visit Summaries. Consume a bm-lhbyh-rxhh diet Lifestyle Jamey Connors MD Note: This [...] of this encounter Implants Implanted Type Area Fisher Sponge Hooking Device Shelf Model / Identifier Expiration Serial / Date Lot Icd, Promote [id number] - [id number] Chest [employer] 04/26/2009 [id number] / Implanted: Qty: 1 on 06/07/2008 at [facility] MEDICAL/ PACESETTE [id number] / R Unify [id number] - [id number] Left: [employer], 12/25/2013 [id number] / Implanted: Qty: 1 on 12/06/2012 at [facility] [employer]. [id number] / Unify Assura [id number] - [id number] Left: [employer], 09/26/2018 [id number] / Implanted: Qty: 1 on 10/06/2016 by Garret Reyes MD at [facility] [employer] [id number] / documented as of this encounter Results Not on filedocumented in this encounter Visit Diagnoses Diagnosis Chronic obstructive pulmonary disease, unspecified COPD type (HCC) - Primary SOB (shortness of breath) Shortness of breath Chronic atrial fibrillation Atrial fibrillation documented in this encounter ([place]) [facility] [phone] [place], [place] (Work) [id number] documented as of this encounter Advance Directives [...]
--- OUTSIDE RECORDS SUMMARY | 2019-09-17 03:02 | XMS REPORT | Continuity of Care Document ---
:1930 External Reference #:[id number] Author Name Kyree Middleton, OD Address [address] [place] [id number] Care Team Providers Name Role Phone Jamey Dorado MD - Internal Care Team Information Restaurant Recruiter [phone] Medicine Problems Active Problems Provider Date Nuclear senile cataract Kyree Hawthornebaldomero, OD Onset: 08/30/2018 Essential hypertension Kyree Emi, OD Onset: 08/30/2018 Asthma Kyree Middleton, OD Onset: 08/30/2018 Gastroesophageal reflux disease Kyree Emi, OD Onset: 08/30/2018 Gout Kyree Hawthornebaldomero, OD Onset: 08/30/2018 Social History Type Date Description Comments Sex Unknown ETOH Use Denies alcohol use ETOH Use Never used alcohol Tobacco Use Start: Unknown Patient has never smoked Recreational Drug Use Denies Drug Use Smoking Status Reviewed: 09/06/19 Patient has never smoked Allergies, Adverse Reactions, Alerts Active Allergies Reaction Severity Comments Date Hydrocodone 08/30/2018 Percocet 08/30/2018 Oxycodone 08/30/2018 Medications Active Medications SIG Qnty Indications Ordering Provider Date Trelegy Ellipta Unknown 100-62.5-25mcg/Inh Aerosol Carvedilol Unknown 3.125mg Tablets Eplerenone Take One Tablet By Unknown 50mg Tablets Mouth Two Times A Day Torsemide Take Two Tablets By Unknown 20mg Tablets Mouth Two Times A Day Warfarin Sodium Take One Tablet By Unknown 5mg Mouth Every Tablets Wednesday And 1 2 Tablet The Rest Of The Week Tamsulosin HCL Unknown 0.4mg Capsules Allopurinol Take One Tablet By Unknown 300mg Mouth Once Daily Tablets Combivent Respimat Inhale 1 puff By Unknown Mouth Four Times A 20-100mcg/Act Aerosol Day as Needed For Shortness Of Breath Celecoxib Unknown 200mg Capsules Immunizations Description No Information Available Vital Signs Date Vital Result Comment 09/06/2019 12:56pm Intraocular Pressure Right Eye 19 mmHg tp Intraocular Pressure Left Eye 16 mmHg tp anita 12:56 PM 08/31/2018 2:01pm Intraocular Pressure Right Eye 12 mmHg Ap Intraocular Pressure Left Eye 14 mmHg Results Description No Information Available Procedures Date Code Description Status 09/06/2019 56298 Exam, Comprehensive, Est PT Completed Medical Devices Description No Information Available Encounters Description No Information Available Assessments Date Code Description Provider 09/06/2019 H43.813 Vitreous degeneration, bilateral Kyree Middleton, OD 09/06/2019 Z96.1 Presence of intraocular lens Kyree Middleton, OD 09/06/2019 H04.123 Dry eye syndrome of bilateral lacrimal glands Kyree Middleton, OD Plan of Treatment Future Appointment(s):09/24/2020 10:15 am - Kyree Middleton, OD at [id number] - Kyree Middleton ODH43.813 Vitreous degeneration, bilateralComments: Discussed diagnosis with patient. Patient instructed to call and follow-up for any increase or change in floaters, new or more frequent flashes, any change in vision or loss of visual field. explained to the patient that floaters will move out of central vision over time & dissipate.followFollow up:1 yr vis dil iopZ96.1 Presence of intraocular lensComments:Continue to [id number] Dry eye syndrome of bilateral lacrimal glandsComments:Systane PRN OU Functional Status Description No Information Available Mental Status Description No Information Available Referrals Description No Information Available
[2019-09-17] MEDS ORDERED: Tranexamic Acid 1,000 MG/10 ML SDV TOPICAL ONE (03:20)
--- NOTE | 2019-09-17 03:47 | ED ---
Throat Pain/Nasal Congestion - HPI Summary HPI Summary: Patient is a 89 y/o M presenting to [facility] with complaints of epistaxis from left nare. He was seen in ENT office 09/12/19 and had cauterization done. Bleeding was controlled until approximately 1600 09/16/19. Bleeding was intermittent but became more persistent recently. Patient is on Coumadin, last check showed INR to be at 2.3. On triage, pain is denied, nothing is noted to aggravate/alleviate Sx. Home medications and allergies are reviewed. - History of Current Complaint Chief Complaint: EDEpistaxis Time Seen by Provider: 09/17/19 02:28 Hx Obtained From: Patient Onset/Duration: Still Present Severity: Moderate Associated Signs And Symptoms: Positive: Nasal Discharge Cough: None - Allergies/Home Medications Allergies/Adverse Reactions: Allergies Allergy/AdvReac Type Severity Reaction Status Date / Time aspirin Allergy Unknown Verified 09/17/19 02:51 Reaction Details oxycodone Allergy Unknown Verified 09/17/19 02:51 Reaction Details Home Medications: Home Medications Albuterol/Ipratropium RESP(NF) [Combivent Respimat (NF)] 1 puff INH Q4H PRN [History Confirmed 09/17/19] Umeclidin/Vilant 62.5 MDI(NF) [ANORO 62.5/25 Ellipta DEVICE (NF)] 1 puff PO DAILY 09/17/19 [History Confirmed 09/17/19] Zolpidem Tartrate 5 mg PO BEDTIME PRN 09/17/19 [History Confirmed 09/17/19] PMH/Surg Hx/FS Hx/Imm Hx Endocrine/Hematology History: Reports: Hx Diabetes - NIDMM, Other Endocrine/ Hematological Disorders - Primary hyper parathyroidism Cardiovascular History: Reports: Hx Congestive Heart Failure, Hx Coronary Artery Disease, Hx Hypercholesterolemia, Hx Hypertension, Hx Pacemaker/ICD - Biventricular pacer AICD Respiratory History: Reports: Hx Chronic Obstructive Pulmonary Disease (COPD), Hx Sleep Apnea - ZAIN no CPAP, Other Respiratory Problems/Disorders - COPD GI History: Reports: Hx Gastroesophageal Reflux Disease, Other GI Disorders - Goldsmith's espohagus History: Denies: Hx Renal Disease - Surgical History Surgery Procedure, Year, and Place: CHOLECYSTECTOMY, APPENDECTOMY, MUSCLE REMOVED FROM ABDOMEN FOR HEART. Pacer implantation. Biventricular pacer & AICD implantation Hx Anesthesia Reactions: No - Immunization History Date of Tetanus Vaccine: up to date Date of Influenza Vaccine: 2014 Infectious Disease History: No Infectious Disease History: Denies: Traveled Outside the [place] in Last 30 Days - Family History Known Family History: Negative: Blood Disorder - Social History Alcohol Use: None Substance Use Type: Reports: None Smoking Status (MU): Never Smoked Tobacco Review of Systems Negative: Fever - on vitals, temp is 97.4 F Positive: Epistaxis All Other Systems Reviewed And Are Negative: Yes Physical Exam - Summary Physical Exam Summary: Appearance: Well-appearing, Well-nourished, lying in bed comfortable Skin: Warm, dry, no obvious rash Eyes: sclera anicteric, no conjunctival pallor ENT: Active brisk bleeding from left nare, briskness of bleeding prevents visualization of bleeding site; mucous membranes moist Neck: deferred Respiratory: No signs of respiratory distress Cardiovascular: Appears well perfused, pulses are nml Abdomen: deferred Musculoskeletal: Moving all 4 extremities without obvious discomfort Neurological: Awake and alert, mentation is normal, speech is fluent and appropriate Psychiatric: affect is normal, does not appear anxious or depressed Triage Information Reviewed: Yes Vital Signs On Initial Exam: Initial Vitals Temp Pulse Resp BP Pulse Ox 97.4 F 70 20 132/71 95 09/17/19 02:13 09/17/19 02:13 09/17/19 02:13 09/17/19 02:13 09/17/19 02:13 Vital Signs Reviewed: Yes Procedures - Sedation Patient Received Moderate/Deep Sedation with Procedure: No Diagnostics - Vital Signs Vital Signs Temp Pulse Resp BP Pulse Ox 09/17/19 02:13 97.4 F 70 20 132/71 95 - Laboratory Result Diagrams: 09/17/19 04:15 Lab Statement: Any lab studies that have been ordered have been reviewed, and results considered in the medical decision making process. EENT Course/Dx - Course Course Of Treatment: Patient is a 89 y/o M presenting to [facility] with complaints of epistaxis from left nare. He was seen in ENT office 09/12/19 and had cauterization done. Bleeding was controlled until approximately 1600 09/16/19. Bleeding was intermittent but became more persistent recently. Patient is on Coumadin, last check showed INR to be at 2.3. Active brisk bleeding from left nare noted, briskness of bleeding prevents visualization of bleeding site. Left nare was packed with 5.5 cm rhino-rocket. However, this did not stop bleeding. 7.5 cm rhino-rocket was placed instead. There was good control of bleeding with this. Patient was discharged to home with ENT follow up. - Diagnoses Provider Diagnoses: Left-sided epistaxis Discharge ED - Sign-Out/Discharge Documenting (check all that apply): Patient Departure - discharge - Discharge Plan Condition: Stable Disposition: HOME Patient Education Materials: Nosebleed (ED) Referrals: Kevin Escamilla MD [Medical Doctor] - 2 Days - Billing Disposition and Condition Condition: STABLE Disposition: Home - Attestation Statements Document Initiated by Campos: Yes Documenting Jaxonibe: MARY KAY KOHLER Provider For Whom Campos is Documenting (Include Credential): DAYSI WILD MD Scribsam Attestation: MARY KAY David scribed for DAYSI WILD MD on 09/17/19 at 0633. Scribe Documentation Reviewed: Yes Provider Attestation: The documentation as recorded by the MARY KAY zuñiga accurately reflects the service I personally performed and the decisions made by DAYSI calabrese MD Status of Scribe Document: Viewed
[2019-09-17 04:20] LABS: ABS Eosinophils 0.1 10^3/ul (0-0.6); ABS Lymphocytes 0.5 10^3/ul (1.0-4.8); ABS Monocytes 0.5 10^3/ul (0-0.8); ABS Neutrophils 4.9 10^3/ul (1.5-7.7); Hematocrit 37 % (42-52); Hemoglobin 12.4 g/dL (14.0-18.0); Lymphocyte % 8.8 %; Mean Corpuscular HGB Conc 34 g/dL (31-36); Mean Corpuscular Hemoglobin 30 pg (27-31); Mean Corpuscular Volume 89 fL (80-94); Mean Platelet Volume 7.3 fL (7.4-10.4); Platelet Count 200 10^3/uL (150-450); Red Blood Count 4.14 10^6 /uL (4.18-5.48); Red Cell Distribution Width 18 % (10-15); White Blood Count 6.2 10^3/uL (3.5-10.8)
[2019-09-17 04:26] LABS: INR 2.56 (0.82-1.09)
[2019-09-17 04:54] VITALS: BP 140/72
== END 2019-09-17 04:54 | disposition home or self-care (01) ==
LOC: ED 02:12
DX: R04.0 Epistaxis (principal); E11.9 Type 2 diabetes mellitus without complications; I11.0 Hypertensive heart disease with heart failure; I50.9 Heart failure, unspecified; I25.10 Atherosclerotic heart disease of native coronary artery without angina pectoris; E78.00 Pure hypercholesterolemia, unspecified; J44.9 Chronic obstructive pulmonary disease, unspecified; K21.9 Gastro-esophageal reflux disease without esophagitis; Z95.810 Presence of automatic (implantable) cardiac defibrillator; Z90.49 Acquired absence of other specified parts of digestive tract; Z90.89 Acquired absence of other organs; Z79.01 Long term (current) use of anticoagulants; Z79.899 Other long term (current) drug therapy; Z88.5 Allergy status to narcotic agent; Z88.8 Allergy status to other drugs, medicaments and biological substances
CPT/HCPCS: 36415; 85025; 85610; 99282; C9046

== ENCOUNTER 2019-09-21 12:11 | Observation (INO) | payer MEDICARE, BC ==
--- NOTE | 2019-09-21 12:57 | ED ---
HPI Chest Pain - HPI Summary HPI Summary: The patient is an 89 y/o M presenting to [facility] accompanied by with a chief complaint of chest pressure onset last night. He reports the pressure is diffuse across the chest and does not radiate to a pinpoint location. The pain is constant and is not aggravated or alleviated by anything. He has not had this chest pressure before. Symptoms are rated 2/10 in severity. He endorses weight gain of 3lbs since last night. He denies SOB or nausea. He notes chronic edema worse in the left leg but not worse today than usual. He also has been experiencing episodes of epistaxis for a week which he has followed up with ENT for today previous to coming to the ED. He was on Warfarin chronically but was advised to halt the medication a week ago secondary to the nosebleeds. PMHx: atrial fibrillation, DM, CAD, CHF, HLD, HTN, DVT, pacemaker, COPD, sleep apnea, PNA, GERD, septic joint. Nonsmoker, no EtOH, no substance use. Medications reviewed. Allergies noted. - History of Current Complaint Chief Complaint: EDChestPainROMI Time Seen by Provider: 09/21/19 12:44 Hx Obtained From: Patient Onset/Duration: Started Hours Ago - last night, Still Present Timing: Lasting Hours Initial Severity: Moderate Current Severity: Mild Pain Intensity: 2 Pain Scale Used: 0-10 Numeric Chest Pain Location: Mid Sternal Chest Pain Radiates: No Character: Pressure/Squeezing Aggravating Factor(s): Nothing Alleviating Factor(s): Nothing Associated Signs and Symptoms: Positive: Chest Pain, Other: - epistaxis, weight gain. Negative: Shortness of Breath, Nausea - Additional Pertinent History Primary Care Physician: [id number] - Allergy/Home Medications Allergies/Adverse Reactions: Allergies Allergy/AdvReac Type Severity Reaction Status Date / Time aspirin Allergy Unknown Verified 09/17/19 02:51 Reaction Details oxycodone Allergy Unknown Verified 09/17/19 02:51 Reaction Details Home Medications: Home Medications Acetaminophen [Tylenol Extra Strength] 500 mg PO Q6H PRN 09/21/19 [History Confirmed 09/21/19] Cyclobenzaprine TAB* [Flexeril 10 MG TAB*] 10 mg PO TID PRN 09/21/19 [History Confirmed 09/21/19] Lactobacillus Acidophilus [Acidophilus] 100 mg PO DAILY 09/21/19 [History Confirmed 09/21/19] Methyl Salicylate/Menth/Camph [Salonpas Deep Relieving Gel] 1 applic TOPICAL DAILY 09/21/19 [History Confirmed 09/21/19] Mupirocin 2% OINT* [Bactroban 2 % Oint*] 1 applic TOPICAL BID 09/21/19 [History Confirmed 09/21/19] Torsemide TAB* [Demadex 20 MG*] 40 mg PO BID 09/21/19 [History Confirmed ] Warfarin TAB(*) [Coumadin TAB(*)] 2.5 mg PO SUTUWEFRSA 09/21/19 [History Confirmed 09/21/19] Warfarin TAB(*) [Coumadin TAB(*)] 5 mg PO MOTH 09/21/19 [History Confirmed 09/21] traMADol TAB* [Ultram*] 25 mg PO Q6HR PRN MDD 100mg 09/21/19 [History Confirmed 09/21/19] PMH/Surg Hx/FS Hx/Imm Hx Endocrine/Hematology History: Reports: Hx Diabetes - NIDMM, Other Endocrine/ Hematological Disorders - Primary hyper parathyroidism Cardiovascular History: Reports: Hx Congestive Heart Failure, Hx Coronary Artery Disease, Hx Hypercholesterolemia, Hx Hypertension, Hx Pacemaker/ICD - Biventricular pacer AICD Respiratory History: Reports: Hx Chronic Obstructive Pulmonary Disease (COPD), Hx Sleep Apnea - ZAIN no CPAP, Other Respiratory Problems/Disorders - COPD GI History: Reports: Hx Gastroesophageal Reflux Disease, Other GI Disorders - Goldsmith's espohagus History: Denies: Hx Renal Disease - Surgical History Surgical History: Yes Surgery Procedure, Year, and Place: CHOLECYSTECTOMY, APPENDECTOMY, MUSCLE REMOVED FROM ABDOMEN FOR HEART. Pacer implantation. Biventricular pacer & AICD implantation Hx Anesthesia Reactions: No - Immunization History Date of Tetanus Vaccine: up to date Date of Influenza Vaccine: 2014 Infectious Disease History: No Infectious Disease History: Denies: Traveled Outside the [place] in Last 30 Days - Family History Known Family History: Positive: Cardiac Disease Negative: Blood Disorder - Social History Alcohol Use: None Hx Substance Use: No Substance Use Type: Reports: None Hx Tobacco Use: No Smoking Status (MU): Never Smoked Tobacco Review of Systems Positive: Other - weight gain of 3lbs overnight Positive: Epistaxis Positive: Chest Pain - pressure Negative: Shortness Of Breath Negative: Nausea All Other Systems Reviewed And Are Negative: Yes Physical Exam - Summary Physical Exam Summary: Appearance: The patient is well-nourished in no acute distress and in no acute pain. Skin: The skin is warm and dry, and skin color reflects adequate perfusion. HEENT: The head is normocephalic and atraumatic. The pupils are equal and reactive. The conjunctivae are clear and without drainage. Nares are patent and without drainage. Mouth reveals moist mucous membranes, and the throat is without erythema and exudate. The external ears are intact. The ear canals are patent and without drainage. The tympanic membranes are intact. Neck: The neck is supple with full range of motion and non-tender. There are no carotid bruits. There is no neck vein distension. Respiratory: Chest is non-tender. Lungs are clear to auscultation and breath sounds are symmetrical and equal. Cardiovascular: Heart is regular rate and rhythm. There is no murmur or rub auscultated. There is peripheral edema with the left worse than the right. Pulses are symmetrical and equal. Abdomen: The abdomen is soft and non-tender. There are normal bowel sounds heard in all four quadrants and there is no organomegaly palpated. Musculoskeletal: There is no back tenderness noted. Extremities are non-tender with full range of motion. There is good capillary refill. There is peripheral edema with the left worse than the right. There is no calf tenderness elicited. Neurological: Patient is alert and oriented to person, place and time. The patient has symmetrical motor strength in all four extremities. Cranial nerves are grossly intact. Deep tendon reflexes are symmetrical and equal in all four extremities. Psychiatric: The patient has an appropriate affect and does not exhibit any anxiety or depression. Triage Information Reviewed: Yes Vital Signs On Initial Exam: Initial Vitals Temp Pulse Resp BP Pulse Ox 97 F 70 14 137/78 95 09/21/19 12:14 09/21/19 12:14 09/21/19 12:14 09/21/19 12:14 09/21/19 12:14 Vital Signs Reviewed: Yes Procedures - Sedation Patient Received Moderate/Deep Sedation with Procedure: No Diagnostics - Vital Signs Vital Signs Temp Pulse Resp BP Pulse Ox 09/21/19 12:14 97 F 70 14 137/78 95 - Laboratory Result Diagrams: 09/21/19 13:27 09/21/19 13:27 Lab Statement: Any lab studies that have been ordered have been reviewed, and results considered in the medical decision making process. - EKG 1215 Cardiac Rate: Other Rate - 70 bpm Summary of EKG Findings: EKG at 1215 reveals paced rhythm at 70 bpm. No STEMI. ED physician has reviewed and interpreted this EKG. Chest Pain Course/Dx - Course Course Of Treatment: Mr. Meneses presented with atypical chest pain. His EKG showed a paced rhythm and was difficult to interpret. His troponin was 0.06 and we have no old ones to compare. His heart scores of [address] with [address] Davis about keeping in the hospital to rule out - Diagnoses Provider Diagnoses: Chest pain - Provider Notifications Discussed Care Of Patient With: Deon Davis - hospitalist Time Discussed With Above Provider: 15:40 Instructed by Provider To: Other - I discussed the patients case with Dr. Davis, who accepts the patient for admission. Discharge ED - Sign-Out/Discharge Documenting (check all that apply): Patient Departure - Patient accepted for admission by Dr. Davis. - Discharge Plan Condition: Stable Disposition: ADMITTED TO [facility] - Billing Disposition and Condition Condition: STABLE Disposition: Admitted to [facility] - Attestation Statements Document Initiated by Jaxonibe: Yes Documenting Scribe: Sommer Green Provider For Whom Campos is Documenting (Include Credential): Dr. Jair Roth MD Scribe Attestation: Sommer David scribed for Dr. Jair Roth MD on 09/21/19 at 1959. Scribe Documentation Reviewed: Yes Provider Attestation: The documentation as recorded by the Sommer zuñiga accurately reflects the service I personally performed and the decisions made by me, Dr. Jair Roth MD Status of Scribe Document: Viewed
[2019-09-21 13:39] LABS: ABS Basophils 0.1 10^3/ul (0-0.2); ABS Eosinophils 0.1 10^3/ul (0-0.6); ABS Lymphocytes 0.4 10^3/ul (1.0-4.8); ABS Monocytes 0.4 10^3/ul (0-0.8); ABS Neutrophils 5.2 10^3/ul (1.5-7.7); Eosinophil % 2.2 %; Hematocrit 32 % (42-52); Hemoglobin 10.8 g/dL (14.0-18.0); Lymphocyte % 5.9 %; Mean Corpuscular HGB Conc 34 g/dL (31-36); Mean Corpuscular Hemoglobin 30 pg (27-31); Mean Corpuscular Volume 89 fL (80-94); Mean Platelet Volume 7.5 fL (7.4-10.4); Platelet Count 216 10^3/uL (150-450); Red Blood Count 3.65 10^6 /uL (4.18-5.48); Red Cell Distribution Width 18 % (10-15); White Blood Count 6.2 10^3/uL (3.5-10.8)
[2019-09-21 13:45] LABS: INR 1.87 (0.82-1.09)
--- OUTSIDE RECORDS SUMMARY | 2019-09-21 13:49 | XMS REPORT | Continuity of Care Document ---
:1930 External Reference #:[id number] Author Name Bhavin Patel MD Address [address] [place] [address] Care Team Providers Name Role Phone Jamey Dorado MD - Internal Care Team Information Prescription Clerk [phone] Medicine Problems Description No Information Available Social History Type Date Description Comments Sex Unknown Tobacco Use Start: Unknown Never Smoked Cigarettes Tobacco Use Start: Unknown Never Smoked Cigars Tobacco Use Start: Unknown Never Smoked A Pipe Smokeless Tobacco Never Used Smokeless Tobacco ETOH Use Denies alcohol use Tobacco Use Start: Unknown Patient has never smoked Smoking Status Reviewed: 09/21/19 Patient has never smoked Allergies, Adverse Reactions, Alerts Active Allergies Reaction Severity Comments Date Hydrocortisone 05/25/2014 Percocet 09/12/2019 Oxycodone 09/12/2019 Medications Active Medications SIG Qnty Indications Ordering Date Provider Allopurinol [address] GALVAN, 300mg Tablets Jamey Tamsulosin HCL [address] GALVAN, 0.4mg Capsules day Jamey Anoro Ellipta [address] [...] Vitamin B6 as directed Unknown 250mg Tablets Fiber Diet as directed Unknown Tablets Immunizations Description No Information Available Vital Signs Date Vital Result Comment 09/21/2019 10:47am Weight 190.00 lb Weight 86.184 kg Height 66 inches 5'6" Height in cm's 167.6 cm BMI (Body Mass Index) 30.7 kg/m2 09/12/2019 3:17pm BP Systolic 131 mmHg BP Diastolic 82 mmHg Heart Rate 91 /min Respiratory Rate 18 /min Weight 190.00 lb Weight 86.184 kg Height 66 inches 5'6" Height in cm's 167.6 cm BMI (Body Mass Index) 30.7 kg/m2 Results Description No Information Available Procedures Date Code Description Status 09/18/2019 94091 Anterior/Posterior Packing Completed 09/12/2019 82317 Contol Nasal Hemorrhage, Anterior, Simple Completed Medical Devices Description No Information Available Encounters Type Date Location Provider Dx Diagnosis Office Visit 09/21/2019 [place],After 09/27/07 Bhavin Patel, R04.0 Epistaxis 10:30a Office Visit 09/18/2019 [facility],After 09/27/07 Kevin Escamilla MD R04.0 Epistaxis 2:45p J34.2 Deviated nasal septum Office Visit 09/12/2019 3:15p [place],After 09/27/07 Maddie Pike PA-C R04.0 Epistaxis Assessments Date Code Description Provider 09/21/2019 R04.0 Epistaxis Bhavin Patel MD 09/18/2019 R04.0 Epistaxis Kevin Escamilla MD 09/18/2019 J34.2 Deviated nasal septum Kevin Escamilla MD 09/12/2019 R04.0 Epistaxis Maddie Pike PA-C Plan of Treatment No Information Available Functional Status Description No Information Available Mental Status Description No Information Available Referrals Description No Information Available
[2019-09-21 14:06] LABS: ALT 11 U/L (7-52); AST 18 U/L (13-39); Albumin 3.8 g/dL (3.2-5.2); Albumin/Globulin Ratio 1.4 (1-3); Alkaline Phosphatase 71 U/L (34-104); Anion Gap 7 mmol/L (2-11); BUN/Creatinine Ratio 26.3 (8-20); Blood Urea Nitrogen 26 mg/dL (6-24); CO2 Carbon Dioxide 28 mmol/L (22-32); Chloride 103 mmol/L (101-111); EGFR African American 86.5 (>60); EGFR Non-African American 71.5 (>60); Globulin 2.8 g/dL (2-4); Glucose 110 mg/dL (70-100); Potassium 3.5 mmol/L (3.5-5.0); Sodium 138 mmol/L (135-145); Total Protein 6.6 g/dL (6.4-8.9)
[2019-09-21 14:08] LABS: Troponin I 0.06 ng/mL (<0.03)
[2019-09-21] MEDS ORDERED: Zolpidem TAB* 5 MG PO PRN (16:45)
[2019-09-21] MEDS ORDERED: Ipratropium HFA INHALER(NF) (ALTERNATIVE = NEBS) INH PRN (16:45)
[2019-09-21] MEDS ORDERED: traMADol TAB* 50 MG PO PRN (16:45)
[2019-09-21] MEDS ORDERED: Cyclobenzaprine TAB* 10 MG PO PRN (16:45)
[2019-09-21] MEDS ORDERED: Ondansetron INJ* 2 MG/ML VIAL IV PRN (16:46)
[2019-09-21] MEDS ORDERED: Acetaminophen TAB* 325 MG PO PRN (16:46)
[2019-09-21] MEDS ORDERED: Albuterol 2.5 MG/3 ML NEB.SOL* (0.083%) INH PRN (16:46)
[2019-09-21 16:59] LABS: Troponin I 0.06 ng/mL (<0.03)
[2019-09-21 20:24] LABS: Troponin I 0.06 ng/mL (<0.03)
--- NOTE | 2019-09-21 20:44 | HP ---
CC: Dr. Dorado* ADMISSION HISTORY AND PHYSICAL: DATE OF ADMISSION: 09/21/19 PRIMARY CARE PROVIDER: Dr. Dorado. HEALTHCARE PROXY: His daughter. CODE STATUS: Full. SOURCE OF INFORMATION: History obtained from interview with the patient and his daughter. RELIABILITY: Fair. CHIEF COMPLAINT: Chest discomfort. HISTORY OF PRESENT ILLNESS: This is an 89-year-old man with past medical history of hypertension, type 2 diabetes, heart failure, atrial fibrillation, obstructive sleep apnea, and CAD by chart review. He had been in his usual state of health until approximately 4 to 5 days prior to presentation on Wednesday he had episode of epistaxis. The patient has had previous episodes of epistaxis that resolved with pressure; however, this one did not stop, presented to the emergency room and had his nose packed. The following day Wednesday, 4 days prior to presentation, he left the emergency room having discontinued his Coumadin and aspirin. Followed up with ENT the following day. On Wednesday, had his packing changed and was feeling okay except for pain in his nose and his throat secondary to the packing, decreased p.o. intake, decreased sleeping and the night prior to presentation developed chest pressure at rest while watching TV, lasted from about 8 p.m. until now which is 4 p.m. the following day, so about 20 hours. During that time he did follow up with ENT, had his nose packing removed and noted that with ambulating throughout the course of the last 20 hours his pain was not worse. There was nothing that exacerbated or relieved the pain. He described that it is an ache that was nonradiating and "possibly" associated with shortness of breath, but not lightheadedness, dizziness, diaphoresis. He denies any recent cough or sore throat other than that associated with the recent nose packing. His exercise tolerance is of simple chores around the house and around town like getting gas or some grocery shopping, though he does walk for 10 to 12 minutes on the treadmill several times per week. PAST MEDICAL HISTORY: Includes: 1. History of septic arthritis. 2. AICD/permanent pacemaker for paroxysmal VT. 3. Type 2 diabetes. 4. Hypertension. 5. Hyperlipidemia. 6. CAD. 7. Diastolic heart failure. 8. Compensated COPD. 9. Hypothyroidism. 10. Gout. 11. GERD. 12. ZAIN, he does not use CPAP. 13. Atrial fibrillation. 14. Primary hypoparathyroidism, although not confirmed by the patient or his daughter. HOME MEDICATIONS: Include: 1. Zolpidem 5 mg at bedtime as needed. 2. Coumadin 5 mg Wednesday and , 2.5 mg Wednesday, Wednesday, Wednesday, Wednesday , Wednesday. 3. Currently on home Ellipta 1 puff daily. 4. Tramadol 25 mg every 6 hours as needed. 5. Torsemide 40 mg daily. 6. Tamsulosin 8 mg daily. 7. AcipHex 20 mg daily. 8. Mupirocin topically twice daily. 9. Methyl salicylate/menthol camphor 1 application topically daily. 10. Lactobacillus 100 mg daily. 11. Ipratropium 2 puffs every 4 hours as needed. 12. Apresoline 50 mg twice daily. 13. Cyclobenzaprine 10 mg 2 times a day as needed. 14. Aspirin 81 mg daily, currently on hold. 15. Allopurinol 300 mg daily. 16. Acetaminophen 500 mg every 6 hours as needed for pain. ALLERGIES: and OXYCODONE. FAMILY HISTORY: Unknown for CAD. 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 No alcohol, tobacco or illicits. Lives alone, ambulates unassisted but does use a walker at night. REVIEW OF SYSTEMS: As per HPI, otherwise all other systems negative. PHYSICAL EXAMINATION GENERAL: Elderly man, appears stated age, lying 20 degrees in bed, in no apparent distress, talks in full sentences. VITAL SIGNS: When seen by this author, 116/70, heart rate of 70, respiratory rate of 16, T-max in the emergency room is 97 Fahrenheit, and 96% on room air. HEENT: Oropharynx is clear. He has dried blood in his bilateral nares. LUNGS: Clear to auscultation throughout. HEART: He has regular rate and rhythm. He has an early soft 2/6 systolic ejection murmur in his right upper and left upper sternal border. He has regular rate and rhythm. ABDOMEN: Soft, nontender, nondistended. EXTREMITIES: Warm and well perfused. He has 2+ bilateral edema unchanged from baseline. Less than 2 seconds cap refill. NEUROLOGIC: He is alert and oriented x3. His cranial nerves II through XII are intact. He has no apparent anxiety, agitation, or depression. DIAGNOSTIC STUDIES/LAB DATA: Labs reviewed are notable for hemoglobin 10.8. INR is 1.87. Troponin I is 0.06 on 2 consecutive checks. Data reviewed. EKG is ventricularly paced. ASSESSMENT AND PLAN: This is an 89-year-old man, past medical history of reported coronary artery disease, type 2 diabetes, hypertension, hyperlipidemia , diastolic heart failure, presented to the hospital with about 20 hours of chest discomfort, now resolved. 1. Chest pain, unclear etiology. We will check chest x-ray 2 views now. Rule out underlying etiology such as pneumothorax pneumonia. This does not seem cardiac in etiology given the long duration; however, his EKG is ventricularly paced makes the interpretation impossible. I would like to check a transthoracic echocardiogram tomorrow given the long duration of his pain as well as plan for chemical stress with nuclear imaging should other etiology not be identified on chest x-ray. Check troponins, still downtrending, last 2 are stable at 0.06. Holding aspirin, believe is low risk for active ACS especially in the setting of stable troponin. We will request Dr. Sanchez's records to include last transthoracic echocardiogram. 2. Atrial fibrillation, holding Coumadin in the setting of recent epistaxis. 3. Anemia in the setting of epistaxis as described above. 4. Type 2 diabetes, on diet control. 5. Diastolic heart failure per report. Continue torsemide, currently compensated. 6. DVT prophylaxis: SCDs in the setting of epistaxis. [id number]/[facility] #: [id number] KT
[2019-09-21] MEDS: CMC:Epleronone (NF) 25 MG TAB PO SCH (22:07)
[2019-09-22] MEDS: Torsemide TAB* 20 MG PO SCH (10:24)
[2019-09-22] MEDS: Tamsulosin CAP* 0.4 MG PO SCH (10:25)
[2019-09-22] MEDS: CMC:Epleronone (NF) 25 MG TAB PO SCH ×2 (10:25→19:48)
[2019-09-22] MEDS: Lactobacillus Acidophilus* 1 TAB PO SCH (10:26)
[2019-09-22] MEDS: Allopurinol TAB* 300 MG PO SCH (10:26)
[2019-09-22] MEDS: Pantoprazole TAB * 40 MG TAB PO SCH (10:26)
--- NOTE | 2019-09-22 10:47 | ECHO ---
*[facility]* [place] [address] Fax #: [phone] Transthoracic Echocardiogram Patient: Kory Meneses : 1930 Study Date: 09/22/2019 Age: 89 Gender: M HR: 68 bpm Height: 66 in /167.6 cm BSA: 1.93 m^2 Weight: 184.6 lb /83.9 kg BMI: 29.9 kg/m^2 *Poke In: * Emani Vizcarra RDCS RN *Referring Physician: * Deon Davis *Reading Physician: * Bhavin Lazaro MD Indications: Chest Pain, unspecified. Edema. History: Atrial fibrillation. Coronary artery disease. Congestive heart failure. Functional status: Not following treatment plan for sleep apnea. Risk factors: Hypertension. Diabetes mellitus. Dyslipidemia. Labs, prior tests, procedures, and surgery: ICD system implantation. Conclusions Summary: - Left ventricle: The cavity size is normal. Wall thickness is moderately increased. Systolic function is normal. The estimated ejection fraction is 55-60%. Features are consistent with a pseudonormal left ventricular filling pattern, with concomitant abnormal relaxation and increased filling pressure (grade 2 diastolic dysfunction). - Right ventricle: The cavity size is mildly dilated. Wall thickness is mildly increased. - Left atrium: The atrium is severely dilated. - Right atrium: The atrium is severely dilated. - Mitral valve: There is mild to moderate regurgitation. 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 (The peak velocities and continuity equation may understimate the aortic stenosis, which was assessed as mild to moderate, due to technical issues). The peak systolic velocity is 2.4 m/sec. The mean systolic gradient is 13.0 mm Hg. The peak systolic gradient is 23.0 mm Hg. The LVOT to aortic valve VTI ratio is 0.52. The valve area by the velocity-time integral method is 1.65 cm^2. The ratio of LVOT to aortic valve peak velocity is 0.51. The valve area by the peak velocity method is 1.61 cm^2. - Tricuspid valve: There is moderate regurgitation. - Pericardium, extracardiac: A mild to moderate pericardial effusion is identified. Features are not consistent with tamponade physiology. - Pulmonary arteries: Systolic pressure is moderately to severely increased, estimated to be 66 mm Hg. Study data: Transthoracic echocardiogram. Procedure: Transthoracic echocardiography was performed. Image quality was good. Complete 2D, spectral Doppler, and color flow Doppler. Location: Procedure room. Patient status: Observation. Patient room number: 445-01. No prior study is available for comparison. Rhythm: Paced rhythm. Findings Left ventricle: The cavity size is normal. Wall thickness is moderately increased. Systolic function is normal. The estimated ejection fraction is 55-60%. Wall motion is normal; there are no regional wall motion abnormalities. Features are consistent with a pseudonormal left ventricular filling pattern, with concomitant abnormal relaxation and increased filling pressure (grade 2 diastolic dysfunction). Right ventricle: The cavity size is mildly dilated. Wall thickness is mildly increased. Pacer wire noted in the right ventricle. Systolic function is normal. Left atrium: The atrium is severely dilated. Right atrium: The atrium is severely dilated. Pacer wire noted in right atrium. Mitral valve: The leaflets are mildly thickened. There is no evidence of stenosis. There is mild to moderate regurgitation. Aortic valve: The annulus is calcified. The valve is trileaflet. The leaflets are mild-moderately thickened with decreased excursion. 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 (The peak velocities and continuity equation may understimate the aortic stenosis, which was assessed as mild to moderate, due to technical issues). There is mild to moderate regurgitation. Tricuspid valve: The valve is structurally normal. There is no evidence of stenosis. There is moderate regurgitation. Pulmonic valve: The valve is structurally normal. There is no evidence of stenosis. There is trace regurgitation. Aorta: Aortic root: The aortic root is not dilated. Ascending aorta: The ascending aorta is not dilated. Aortic arch: The aortic arch is not visualized. Pericardium: A mild to moderate pericardial effusion is identified. It measures 1.3 cm posteriorly in the ANTONIO view, 1.2 cm posteriorly in the PSA view, 0.6 cm adjacent to the right atrium, 0.8 cm adjacent to the left ventricle, and 0.3 cm at the apex in the A4C view, and 1.4 cm anteriorly and 1.7cm posteriorly in the subcostal view. The respiratory variation is 2% for mitral E peak velocity, 5% for left ventricular outflow tract velocity, and 23% tricuspid E peak velocity. Doppler: Features are not consistent with tamponade physiology. Pulmonary arteries: The main pulmonary artery is normal-sized. Systolic pressure is moderately to severely increased, estimated to be 66 mm Hg. Systemic veins: Inferior vena cava: The vessel is normal in size. There is (< 50%) respiratory change in the IVC dimension. Measurements Left ventricle Value Ref Right atrium continued Value Ref AKBAR, LAX 4.4 cm 4.2 - 5.8 SI dim, ES, A4C (H) 7.3 cm 3.4 - 5.3 ESD, LAX 3.2 cm 2.5 - 4.0 Estimated RAP 8 mm Hg --------- FS, LAX 28 % 25 - 43 PW, ED (H) 1.5 cm 0.6 - 1.0 Aortic valve Value Ref IVS/PW, ED 1.02 Rich diam, ED 2.1 cm --------- Qs 3.4 L/min Rich diam/bsa, ED 1.1 cm/m^2 --------- E', lat rich, TDI (L) 4.6 cm/sec >=10.0 Peak v, S 2.4 m/sec - -------- E/e', lat rich, 33 VTI, S 47.3 cm ---- ----- TDI Mean grad, S 13.0 mm Hg --------- E', med rich, TDI (L) 6.0 cm/sec >=7.0 Peak grad, S 23.0 mm Hg - -------- E/e', med rich, 26 LVOT/AV, VTI ratio 0.52 ---- ----- TDI ALEX, VTI 1.65 cm^2 --------- E', avg, TDI 5.3 cm/sec ALEX, Vmax 1.61 cm^2 ---- ----- E/e', avg, TDI (H) 29 <=14 AR peak v 3.73 m/sec - -------- AR PHT 456 ms --------- LVOT Value Ref AR peak grad 56 mm Hg --------- Diam, S 2.00 cm Area 3.1 cm^2 Mitral valve Value Ref Peak mayra, S 1.23 m/sec Peak E 1.53 m/sec --------- VTI, S 24.8 cm Decel time 162 ms --------- Peak grad, S 6 mm Hg Peak grad, D 9.4 mm Hg --------- Mean grad, S 4 mm Hg SV 78 ml Pulmonic valve Value Ref SV/bsa 40 ml/m^2 Peak v, S 0.94 m/sec --------- Peak grad, S 3.0 mm Hg --------- Ventricular septum Value Ref IVS, ED (H) 1.5 cm 0.6 - 1.0 Tricuspid valve Value Ref TR peak v (H) 3.8 m/sec <=2.8 Right ventricle Value Ref AKBAR, LAX 4.1 cm Aortic root Value Ref AKBAR minor ax, A4C (H) 3.6 cm 1.9 - 3.5 Root diam 3.2 cm <4.1 mid FW length, ED 0.8 cm Ascending aorta Value Ref Pressure, S 66 mm Hg AAo AP diam, S 3.5 cm --------- Left atrium Value Ref Pulmonary artery Value Ref AP dim, ES (H) 5.50 cm 3.00 - Pressure, S 66.0 mm Hg --------- 4.00 ML dim, A4C 5.8 cm Inferior vena cava Value Ref SI dim, A4C 8.0 cm Diam 1.8 cm --------- Vol/bsa, ES, 1-p (H) 101 ml/m^2 12 - 37 A4C Vol/bsa, ES, A/L (H) 107 ml/m^2 16 - 34 Right atrium Value Ref ML dim, ES, A4C (H) 4.6 cm 2.6 - 4.4 Legend: (L) and (H) юлия values outside specified reference range. Prepared and electronically signed by Bhavin Lazaro MD 09/22/2019 10:46
[2019-09-22] MEDS ORDERED: Regadenoson* 0.4 MG/5 ML SYRINGE ONE (12:29)
[2019-09-22] MEDS ORDERED: Aminophylline IV* 25 MG/ML 10 ML VIAL ONE (12:30)
[2019-09-22 12:58] LABS: Total Iron Binding Capacity 305 mcg/dL (250-450); Transferrin 218 mg/dL (203-362)
[2019-09-22 13:05] LABS: % Iron Saturation 7 % (15-55); Iron < 20 ug/dL (50-212)
[2019-09-22 13:17] LABS: Ferritin 79.2 ng/mL (24-336)
[2019-09-22 13:20] LABS: Folate 10.58 ng/mL (>3.99)
[2019-09-22 18:25] LABS: HDL Cholesterol 38.7 mg/dL
--- NOTE | 2019-09-22 18:52 | PN ---
Subjective Date of Service: 09/22/19 Interval History: Patient was seen resting in bed. Stated he had nonspecific chest pain twice today, both after having undergone parts of his stress test that quickly resolved without intervention. Nursing had stated that the pain was reproducible. Denies shortness of breath, nausea, vomiting, abdominal pain. Patient states he feels well on the whole. Family History: Unchanged from Admission Social History: Unchanged from Admission Past Medical History: Unchanged from Admission Objective Active Medications: Acetaminophen (Tylenol Tab*) 650 mg PO Q4H PRN PRN Reason: MILD PAIN or TEMP > 100.4 Albuterol (Ventolin 2.5 Mg/3 Ml Neb.Christal*) 2.5 mg INH [id number] AWAKE PRN PRN Reason: sob/wheezing Allopurinol (Zyloprim Tab*) 300 mg PO DAILY [facility] Last Admin: 09/22/19 10:26 Dose: 300 mg Aspirin (Aspirin 81 Mg Chew Tab*) 81 mg PO DAILY [facility] Cyclobenzaprine HCl (Flexeril Tab*) 10 mg PO TID PRN PRN Reason: SPASMS - MUSCLE Eplerenone (Inspra (Nf)) 50 mg PO BID [facility] Last Admin: 09/22/19 10:25 Dose: 50 mg Ipratropium [place] (Atrovent Hfa Inhaler(Nf)) 2 puff INH Q4H PRN PRN Reason: SOB/WHEEZING Lactobacillus Rhamnosus (Lactobacillus Acidophilus*) 1 tab PO DAILY [facility] Last Admin: 09/22/19 10:26 Dose: 1 tab Ondansetron HCl (Zofran Inj*) 4 mg IV Q4H PRN PRN Reason: NAUSEA/VOMITING Pantoprazole Sodium (Protonix Tab*) 40 mg PO DAILY [facility]; Protocol Last Admin: 09/22/19 10:26 Dose: 40 mg Tamsulosin HCl (Flomax Cap*) 0.8 mg PO DAILY [facility] Last Admin: 09/22/19 10:25 Dose: 0.8 mg Torsemide (Demadex*) 40 mg PO DAILY [facility] Last Admin: 09/22/19 10:24 Dose: 40 mg Tramadol HCl (Ultram*) 25 mg PO Q6H PRN PRN Reason: PAIN - MODERATE Zolpidem Tartrate (Ambien Tab*) 5 mg PO BEDTIME PRN PRN Reason: INSOMNIA Vital Signs - 8 hr 09/22/19 09/22/19 11:15 15:15 Temperature 97.7 F 97.9 F Pulse Rate 70 70 Respiratory 16 18 Rate Blood Pressure 121/67 120/67 (mmHg) O2 Sat by Pulse 96 96 Oximetry Oxygen Devices in Use Now: None Appearance: Well developed older gentleman seen resting in bed. No acute distress. Eyes: No Scleral Icterus, PERRLA Ears/Nose/Mouth/Throat: NL Teeth, Lips, Gums, Mucous Membranes Moist Neck: NL Appearance and Movements; NL JVP, Trachea Midline Respiratory: Symmetrical Chest Expansion and Respiratory Effort, - - Crackles to left base. Cardiovascular: NL Sounds; No Murmurs; No JVD, RRR, No Edema Abdominal: NL Sounds; No Tenderness; No Distention Lymphatic: No Cervical Adenopathy Extremities: No Clubbing, Cyanosis, - - 2+ pitting edema bilaterally Skin: No Rash or Ulcers, No Nodules or Sclerosis Neurological: Alert and Oriented x 3 Result Diagrams: 09/21/19 13:27 09/21/19 13:27 Assess/Plan/Problems-Billing Assessment: This is an 89 year old male with a PMH of DMII, pacer placement, and afib who was admitted 09/21/19 with chest pain, found to have had an apical/inferior [place]. - Patient Problems (1) Myocardial infarct Current Visit: Yes Status: Acute Code(s): I21.9 - ACUTE MYOCARDIAL INFARCTION, UNSPECIFIED SNOMED Code(s): 83204801 Comment: -Experienced two episodes of ches tpain today which nurse stated were reproducible. No other symptoms. Underwent echo and stress test today. Stress test revealed a moderately sized apical/inferior [place]. -ECHO showed EF of 55-60% with mild-moderate pericardial infusion, findings consistent with previous echo. -LDL was 50, do not feel it necessary to start atorvastatin, especially taking into consideration patient's age. (2) Atrial fibrillation Current Visit: No Status: Acute Code(s): I48.91 - UNSPECIFIED ATRIAL FIBRILLATION SNOMED Code(s): 45119275 Comment: -Asa and warfarin held due to recent epistaxis. To restart both meds on Wednesday. Patient has not bled since Wednesday, though noted crusted blood to bilateral nares. -Has a pacer, not on a beta mariam. (3) COPD (chronic obstructive pulmonary disease) Current Visit: No Status: Acute Code(s): J44.9 - CHRONIC OBSTRUCTIVE PULMONARY DISEASE, UNSPECIFIED SNOMED Code(s): 61715126 Comment: -Stable. Not on home O2. Continue ipratropium inhaler as needed. 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 Normally sees Dr. Sanchez in [place], daughter said that he is aware of this. Patient does not feel short of breath, has no fever or leukocytosis. Effusions not big enough to warrent a tap. -Continue torsemide, epleronone. (5) BPH (benign prostatic hyperplasia) Current Visit: Yes Status: Acute Code(s): N40.0 - BENIGN PROSTATIC HYPERPLASIA WITHOUT LOWER URINRY TRACT SYMP SNOMED Code(s): 882591770 Comment: -Continue tamsulosin. (6) Gout Current Visit: Yes Status: Acute Code(s): M10.9 - GOUT, UNSPECIFIED SNOMED Code(s): 02435941 Comment: -Continue allopurinol. (7) DVT prophylaxis Current Visit: Yes Status: Acute Code(s): Z29.9 - ENCOUNTER FOR PROPHYLACTIC MEASURES, UNSPECIFIED SNOMED Code(s): 848901142 Comment: -SCD's. Anticoagulation held until Wednesday due to recent epistaxis. (8) Full code status Current Visit: Yes Status: Acute Code(s): Z78.9 - OTHER SPECIFIED HEALTH STATUS SNOMED Code(s): 603597976 Status and Disposition: Condition: Fair Disposition: Admit OBV to . Attending: Brisa Weinstein
[2019-09-23] MEDS ORDERED: Aspirin 81 mg CHEW TAB* 81 MG TAB.CHEW PO SCH (09:00)
[2019-09-23] MEDS: Torsemide TAB* 20 MG PO SCH (09:49)
[2019-09-23] MEDS: Tamsulosin CAP* 0.4 MG PO SCH (09:49)
[2019-09-23] MEDS: CMC:Epleronone (NF) 25 MG TAB PO SCH (09:49)
[2019-09-23] MEDS: Allopurinol TAB* 300 MG PO SCH (09:50)
[2019-09-23] MEDS: Pantoprazole TAB * 40 MG TAB PO SCH (09:50)
[2019-09-23] MEDS: Lactobacillus Acidophilus* 1 TAB PO SCH (09:50)
[2019-09-23 11:55] VITALS: BP 130/66
--- NOTE | 2019-09-23 21:11 | DS ---
Amended report to enter cosigning physician. DISCHARGE SUMMARY: DATE OF ADMISSION: 09/21/19 DATE OF DISCHARGE: 09/23/19 ATTENDING PHYSICIAN: Dr. Meagan Busch* (dictated by Dahiana Carrasco, LASHA). PRIMARY CARE PROVIDER: Dr. Dorado. PRIMARY DIAGNOSES: 1. Myocardial infarction. 2. Iron deficiency anemia. SECONDARY DIAGNOSES: 1. 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 2. Diabetes, type 2. 3. Hypertension. 4. Hyperlipidemia. 5. Coronary artery disease. 6. Diastolic heart failure. 7. Compensated chronic obstructive pulmonary disease. 8. Hypothyroidism. 9. Gout. 10. Gastroesophageal reflux disease. 11. Obstructive sleep apnea. 12. Atrial fibrillation. 13. Primary hypoparathyroidism. PROCEDURES: Nuclear cardiac stress test performed, which showed the patient was a low cardiac risk; however, revealed a moderate-sized area of decreased activity in the apex inferior wall consistent with an infarct or an attenuated artifact. There is no evidence for ischemia. DIAGNOSTIC STUDIES: Chest x-ray findings were consistent with cardiogenic pulmonary edema with small interval increase in size with bibasilar pleural effusions relative to the 10/27/15 chest x-ray and transthoracic echocardiogram , which showed ejection fraction of 55% to 60%, features are consistent with pseudonormal left ventricular filling pattern, grade 2 diastolic dysfunction, right ventricle mildly dilated, bilateral atria severely dilated, mitral valve has mild to moderate regurgitation. Aortic valve findings consistent with moderate stenosis. Tricuspid valve, moderate regurgitation. Pericardium has mild to moderate pericardial effusion. Features are not consistent with tamponade physiology. PERTINENT LAB STUDIES: RBC 3.65, hemoglobin 10.6, hematocrit 32, RDW 18. INR 1.87. Hemoglobin A1c 5.9, BUN 26, BUN and creatinine ratio 26.3, glucose 110. Iron less than 20, TIBC 305, percent saturation 7, transferrin 218, ferritin 79.2. Troponin 0.06. Triglycerides 73, cholesterol 103, LDL cholesterol 50, HDL cholesterol 38.7. Vitamin B12 of 371 and folate 10.58. HISTORY OF PRESENT ILLNESS/HOSPITAL COURSE: This is an 89-year-old male with a past medical history significant for hypertension, type 2 diabetes, diastolic congestive heart failure and atrial fibrillation, who came to the emergency room on 09/21/19 for complaints of shortness of breath, racing heart and lightheadedness. Of note, he had been in his usual state of health until approximately 4 to 5 days prior to coming to the emergency room due to an episode of epistaxis, which he gets several times a month; however, in this particular instance, he did not stop bleeding and required a trip to the emergency room at that time and had nasal packing. Four days prior to presenting to the emergency room, Coumadin and aspirin were discontinued due to the bleed and he followed up with ENT the following day to have the packing changed and he was feeling okay until the night prior to presentation, he developed chest pressure and the episode lasted for about 20 hours. He had a nonradiating ache in his chest without other symptoms. After he came to the emergency room, chest x-rays were done, labs were drawn, troponins were elevated. The next day, he received an echocardiogram and a nuclear stress test. During the 2 portions of the stress test at 2 separate times, he reported having chest pain after they took him off the table; however, nursing stated that the pain had been reproducible at that time. Today, the patient was still reporting intermittent feeling of pressure in his chest. Unable to interpret EKGs due to ventricular pacing. Episodes of chest pressure and pain were brief and resolved on their own. Troponins have been stable at 0.06. Echocardiogram and nuclear med stress tests were as stated in above paragraph. 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 Sanchez in [place] within the next week with regards to his new myocardial infarction. Just prior to discharge, he stated he felt well, though tired. Denied any shortness of breath, abdominal pain, nausea, vomiting, diaphoresis or dizziness or lightheadedness. REVIEW OF SYSTEMS: An 11-point system review was performed, which was positive for intermittent chest pressure and reproducible pain, shortness of breath with exertion, though not at rest. Negative for chest pain, abdominal pain, nausea, vomiting, dizziness, lightheadedness, issues moving his bowel or bladder. PHYSICAL EXAMINATION: Vital Signs: Temperature 97.5 Fahrenheit, 70 pulse, 18 resps, 95% oxygen on room air, and 130/66 blood pressure. General: This is a well- developed older gentleman, seen resting in the bed, in no acute distress. HEENT: Conjunctivae pink and moist. PERRLA. EOMs intact. Oropharynx clear. Mucous membranes moist. Neck is supple. Cardiac: Heart rate is regular. No murmurs, gallops, or rubs appreciated. Respiratory: Lung sounds clear throughout bilaterally on room air. No accessory muscle use noted. Abdomen is soft, nontender, nondistended with positive bowel sounds x4. Musculoskeletal: No clubbing or cyanosis of the digits. Able to move all extremities. Neurological: No focal deficits appreciated. Sensation intact to light touch. Skin: Multiple bruising to bilateral upper extremities. Psych: Alert and oriented x4. Thought content organized. DISCHARGE PLAN: Diet is low salt, low fat. Activity is as tolerated to avoid strenuous activity, though walking is encouraged and to go up stairs, but slowly is okay. The patient is to return to the hospital should he have any worsening chest pain, pressure, radiating pain, diaphoresis, fever, or increasing shortness of breath. PLAN FOR EACH CONDITION: 1. Myocardial infarction. It is believed that the recent episode of epistaxis in conjunction with his preexisting risk factors is what contributed to his current myocardial infarction; however, bleeding is stable. He is to follow up with Laura ledbetter [place] within the week to continue his aspirin 81 mg. During discussions with the patient, he was resistant to changes in his medication. Previously had not been on a statin; however, nanette lipid levels and LDL cholesterol was 50 and so based upon that and his age and his wishes, did not started on a beta- mariam as the patient has pacemaker. We will continue aspirin and warfarin on Wednesday. The patient is to follow up with his [facility] for titration of dosing. We will start the patient on 2.5 mg of his Coumadin for Wednesday and Wednesday with the goal of having his blood drawn on Wednesday, last INR on the was 1.87. 2. Iron deficiency anemia secondary to epistaxis. The patient is asymptomatic at this time; however, we will start him on ferrous sulfate every other day, instructed to take medication on an empty stomach, preferably with vitamin C rich fluid such as OJ to enhance absorption. 3. Congestive heart failure/hypertension. Ejection fraction was 55% to 60%. The patient is not in any exacerbation. Blood pressures have been relatively stable throughout his admission, generally in the 110s to 120s, should continue torsemide and eplerenone upon discharge. Recommend that he should do daily weights to watch for fluid overload. I had a conversation about blood thinners with the patient about switching to a DOAC for more stable control; however, the patient had his misgivings about medication despite education and stated "call me old school, but I would prefer to stick with what I have been doing." 4. Gout. Continue allopurinol. 5. COPD. Does not require any home O2. He is to continue his Anoro inhaler as well as Atrovent inhaler. 6. BPH. Continue tamsulosin. 7. Insomnia. The patient had been given Ambien while he was here; however, explained how this medication was on the [facility] list and I did not feel comfortable ordering it for home use. Agreed to try melatonin 3 mg and to follow up with primary care physician should this not be adequate to assist with his sleeping. MEDICATIONS: Medications continued upon discharge: 1. Warfarin 2.5 mg p.o. this Wednesday and Wednesday and to be titrated through [facility]. 2. Anoro Ellipta 62.5/25 one puff inhalation daily. 3. Tramadol 25 mg p.o. q.6 hours p.r.n., max daily dose of 100 mg. 4. Torsemide 40 mg p.o. b.i.d. 5. Tamsulosin 0.8 mg p.o. daily. 6. Rabeprazole 20 mg p.o. daily. 7. Mupirocin 2% one application topically b.i.d. 8. Salonpas deep relieving gel 1 application topically daily. 9. Lactobacillus 100 mg p.o. daily. 10. Atrovent 2 puffs inhalation q.4 hours p.r.n. 11. Eplerenone 50 mg p.o. b.i.d. 12. Cyclobenzaprine 10 mg p.o. t.i.d., p.r.n. 13. Aspirin 81 mg p.o. daily. 14. Allopurinol 300 mg p.o. daily. 15. Acetaminophen 500 mg p.o. q.6 hours p.r.n. 16. Melatonin 3 mg p.o. at bedtime p.r.n. 17. Ferrous sulfate 325 mg p.o. every other day. CONDITION UPON DISCHARGE: Stable. DISPOSITION: To home. TIME SPENT: Time spent on the patient is about 60 minutes with half of that spent [id number]. Dahiana Carrasco, CLINIQUE COUNTER MANAGER [id number]/[facility] #: [id number] [facility]ENTERYessenia
== END 2019-09-23 15:52 | disposition home or self-care (01) ==
LOC: ED 12:11 → MEDTELE 16:46
PROVIDERS: ADMIT Internal Medicine; ATTEND Internal Medicine
DX: I25.2 Old myocardial infarction (principal); D50.9 Iron deficiency anemia, unspecified; Z95.810 Presence of automatic (implantable) cardiac defibrillator; I47.2 Ventricular tachycardia; E11.9 Type 2 diabetes mellitus without complications; E78.5 Hyperlipidemia, unspecified; I25.10 Atherosclerotic heart disease of native coronary artery without angina pectoris; I11.0 Hypertensive heart disease with heart failure; I50.30 Unspecified diastolic (congestive) heart failure; E03.9 Hypothyroidism, unspecified; J44.9 Chronic obstructive pulmonary disease, unspecified; M10.9 Gout, unspecified; K21.9 Gastro-esophageal reflux disease without esophagitis; G47.33 Obstructive sleep apnea (adult) (pediatric); I48.91 Unspecified atrial fibrillation; E20.9 Hypoparathyroidism, unspecified; Z79.82 Long term (current) use of aspirin; Z79.899 Other long term (current) drug therapy; Z79.01 Long term (current) use of anticoagulants
CPT/HCPCS: 36415; 71046; 78452; 80053; 80061; 82607; 82728; 82746; 83036; 83540; 83550; 84484; 85025; 85610; 93005; 93017; 93306; 99284; A9270-GY; A9502; G0378; J0280; J2785